=== PATIENT | female | born 1975 | race Caucasian/White ===

== ENCOUNTER 2019-01-20 12:09 | Inpatient (IN) | payer MEDICAID, MEDICARE ==
[~2019-01-20] VITALS: Ht 165.1 cm; Wt 43.7 kg
[2019-01-20] MEDS ORDERED: SODIUM CHLORIDE 0.9% 1,000ML IVBOLUS ONE ×2 (12:30→16:00)
[2019-01-20] MEDS ORDERED: ACETAMINOPHEN 650 MG SUPP ONE (12:46)
[2019-01-20 12:48] LABS: RAPID INFLUENZA A Negative (Negative); RAPID INFLUENZA B Negative (Negative)
[2019-01-20 12:57] LABS: MEAN CORPUSCULAR HEMOGLOBIN 27.5 pg (27.0-34.8); MEAN CORPUSCULAR HGB CONC 31.6 g/dL (32.4-35.8); MEAN PLATELET VOLUME 9.1 fL (7.4-10.4); PLATELET COUNT 448 x10^3/uL (130-400); RED BLOOD COUNT 4.05 x10^6/uL (3.82-5.3); RED CELL DISTRIBUTION WIDTH 16.2 % (9.6-15.2)
[2019-01-20] MEDS ORDERED: ACETAMINOPHEN 650 MG SUPP PR ONE (13:00)
[2019-01-20] MEDS ORDERED: PLEASE ENTER ALLERGIES MC SCH (13:00)
[2019-01-20 13:09] LABS: ALANINE AMINOTRANSFERASE 11 U/L (12-78); ALBUMIN 1.7 g/dL (3.4-5.0); CALCIUM 8.8 mg/dL (8.5-10.1); CREATININE 0.63 mg/dL (0.55-1.02)
[2019-01-20 13:13] LABS: ANION GAP 10 mmol/L (5-15)
[2019-01-20 13:14] LABS: CHLORIDE 115 mmol/L (98-107)
[2019-01-20 13:15] LABS: ALKALINE PHOSPHATASE 124 U/L (45-117); BILIRUBIN,TOTAL 0.5 mg/dL (0.2-1.0); TOTAL PROTEIN 6.8 g/dL (6.4-8.2)
--- NOTE | 2019-01-20 13:17 | NUR ---
late entry: 1220-pt bib remsa from [facility] for high fever and hi heart rate. pt was 88% on ra at [facility] and hr 140. pt placed in room. ekg done and presented to md. pt placed in room and placed on bp, cardiac and cont. pulse oximeter. assessment completed. pt with 2 stage 4 decubitis pressure ulcers on left coccyx and right hip area. strong odor with weeping serosainguinous fluid from left coccyx area. pt is unable to communicate and aphasic. pt with contractures bilateral legs and unable to ambulate and is bed bound. assessment completed.
[2019-01-20 13:18] LABS: MD YES
[2019-01-20 13:26] LABS: BAND#(MANUAL) 0.47 x10^3/uL; BANDS%(MANUAL) 2 % (0-7); LYMPH#(MANUAL) 1.88 x10^3/uL (1-3.4); LYMPHS% (MANUAL) 8 % (22-44); MONOS#(MANUAL) 1.41 x10^3/uL (0.3-2.7); MONOS% (MANUAL) 6 % (2-9); SEG#(MANUAL) 19.74 x10^3/uL (1.8-6.8); SEGS% (MANUAL) 84 % (42-75)
[2019-01-20 13:28] LABS: ANISOCYTOSIS 1+; POLYCHROMASIA 1+
[2019-01-20] MEDS ORDERED: VANCOMYCIN PER PHARMACY MC ONE (13:30)
[2019-01-20] MEDS ORDERED: VANCOMYCIN 800 MG in SODIUM CHLORIDE 0.9% 100 ML IV ONE (13:30)
[2019-01-20] MEDS ORDERED: PIPERACILLIN/TAZO/PMX 3.375GM 50 ML IVPB ONE (13:30)
[2019-01-20] MEDS ORDERED: POTASSIUM CHLORIDE 40 MEQ in SODIUM CHLORIDE 0.9% 500 ML IV ONE (13:30)
[2019-01-20 13:50] LABS: <PLATELET ESTIMATE> INCREASED
[2019-01-20] MEDS ORDERED: PIPERACILLIN/TAZO/PMX 3.375GM 50 ML ONE (13:54)
[2019-01-20 13:57] LABS: LARGE PLATELETS 1+
--- NOTE | 2019-01-20 14:00 | NUR ---
urine collected from [facility] and walked to lab. blood cultures drawn x 2 and antibiotics hung per md orders
[2019-01-20 14:10] LABS: CULTURE INDICATED? YES; MICROSCOPIC INDICATED
--- NOTE | 2019-01-20 14:40 | NUR ---
PT RESTING IN BED.
--- NOTE | 2019-01-20 15:43 | NUR ---
hospitalist at bedside.
[2019-01-20] MEDS ORDERED: ACET325T14 PO (15:44)
[2019-01-20] MEDS ORDERED: AMOX1TAB64 PO (15:45)
[2019-01-20] MEDS ORDERED: BISA10SU13 RC (15:46)
[2019-01-20] MEDS ORDERED: CIPR500T87 PO (15:47)
[2019-01-20] MEDS ORDERED: VALP250S PO/NG (15:48)
[2019-01-20] MEDS ORDERED: VALP250C PO (15:48)
[2019-01-20] MEDS ORDERED: LURA20TA PO (15:49)
[2019-01-20] MEDS ORDERED: POTA20TA14 PO (15:50)
[2019-01-20] MEDS ORDERED: QUET100T PO (15:51)
[2019-01-20] MEDS ORDERED: TRAZ-137 PO (15:52)
[2019-01-20] MEDS ORDERED: ONDANSETRON 2MG/ML, 2ML IVPush PRN (16:00)
[2019-01-20] MEDS ORDERED: VANCOMYCIN PER PHARMACY MC PRN (16:00)
[2019-01-20] MEDS ORDERED: hydrALAzine 20 MG/ML, 1ML IVPush PRN (16:00)
--- NOTE | 2019-01-20 16:21 | NUR ---
PT TO GO TO MRI FOR [facility] MRI.
[2019-01-20] MEDS ORDERED: NS + 20MEQ KCL 1,000 ML IV SCH (16:30)
[2019-01-20] MEDS ORDERED: PHARMACOKINETIC MONITORING MC PRN (18:00)
[2019-01-20] MEDS ORDERED: PHARMACOKINETIC CONSULTATION MC ONE (18:00)
[2019-01-20 18:02] LABS: ANION GAP 6 mmol/L (5-15); CHLORIDE 121 mmol/L (98-107); CREATININE 0.44 mg/dL (0.55-1.02)
[2019-01-20] MEDS ORDERED: D5%-0.45NACL+KCL 20MEQ 1,000 ML IV SCH (18:03)
[2019-01-20] MEDS ORDERED: POTASSIUM CHLORIDE 20 MEQ PACKET PO ONE (18:30)
[2019-01-20 18:46] VITALS: BP 88/50
[2019-01-20] MEDS ORDERED: CEFTRIAXONE PMX 1GM/50ML 50 ML IV SCH (19:00)
[2019-01-20] MEDS: QUETIAPINE 100MG TABLET PO SCH (20:52)
[2019-01-20] MEDS: LURASIDONE 20 MG TABLET PO SCH (20:52)
[2019-01-20] MEDS: VALPROATE SODIUM 250 MG/5 ML ORAL SOLN PO/NG SCH (20:52)
[2019-01-20] MEDS: ENOXAPARIN 40 MG/0.4 ML SQ SCH (20:53)
[2019-01-20 22:28] LABS: ANION GAP 7 mmol/L (5-15); CALCIUM 8.2 mg/dL (8.5-10.1); CHLORIDE 121 mmol/L (98-107); CREATININE 0.38 mg/dL (0.55-1.02)
[2019-01-20] MEDS: PIPERACILLIN/TAZO/PMX 3.375GM 50 ML IV SCH (22:31)
[2019-01-21 00:35] VITALS: BP 100/52
[2019-01-21] MEDS: POTASSIUM CHLORIDE 20 MEQ in DEXTROSE 5% 1,000 ML IV SCH ×2 (00:56→22:42)
[2019-01-21] MEDS ORDERED: VANCOMYCIN 800 MG in SODIUM CHLORIDE 0.9% 100 ML IV SCH (03:00)
[2019-01-21] MEDS ORDERED: SODIUM CHLORIDE 0.9%, 500ML IVBOLUS ONE (05:30)
[2019-01-21 06:05] LABS: ANION GAP 5 mmol/L (5-15); CALCIUM 8.2 mg/dL (8.5-10.1); CHLORIDE 123 mmol/L (98-107); CREATININE 0.23 mg/dL (0.55-1.02)
[2019-01-21] MEDS: PIPERACILLIN/TAZO/PMX 3.375GM 50 ML IV SCH ×3 (06:05→22:40)
[2019-01-21 06:06] LABS: MEAN CORPUSCULAR HEMOGLOBIN 27.7 pg (27.0-34.8); MEAN CORPUSCULAR HGB CONC 31.4 g/dL (32.4-35.8); MEAN CORPUSCULAR VOLUME 88.3 fL (80-100); MEAN PLATELET VOLUME 9.3 fL (7.4-10.4); PLATELET COUNT 345 x10^3/uL (130-400); RED BLOOD COUNT 2.93 x10^6/uL (3.82-5.3); RED CELL DISTRIBUTION WIDTH 16.1 % (9.6-15.2)
[2019-01-21 07:50] VITALS: BP 91/51
[2019-01-21 08:48] LABS: BASOPHILS # (AUTO) 0.07 x10^3/uL (0-0.1); BASOPHILS % (AUTO) 0 % (0-1); EOSINOPHILS # (AUTO) 0.03 x10^3/uL (0-0.4); EOSINOPHILS % (AUTO) 0 % (1-7); LYMPHOCYTES # (AUTO) 1.53 x10^3/uL (1-3.4); LYMPHOCYTES % (AUTO) 8 % (22-44); MD NO; MONOCYTES # (AUTO) 1.02 x10^3/uL (0.2-0.8); MONOCYTES % (AUTO) 5 % (2-9); NEUTROPHILS # (AUTO) 16.97 x10^3/uL (1.8-6.8); NEUTROPHILS % (AUTO) 87 % (42-75)
[2019-01-21] MEDS ORDERED: POTASSIUM CHLORIDE 20 MEQ TAB.ER.PRT PO SCH (09:00)
[2019-01-21] MEDS ORDERED: POTASSIUM CHLORIDE 40 MEQ in SODIUM CHLORIDE 0.9% 500 ML IV ONE (10:00)
[2019-01-21] MEDS: BISACODYL 10 MG SUPP HOMEMEDPR SCH (10:02)
[2019-01-21] MEDS: VALPROATE SODIUM 250 MG/5 ML ORAL SOLN PO/NG SCH (10:02)
[2019-01-21 13:30] VITALS: BP 92/55
[2019-01-21] MEDS: DAPTOMYCIN 240 MG in SODIUM CHLORIDE 0.9% 100 ML IVPB SCH (13:56)
--- NOTE | 2019-01-21 14:25 | NUR ---
REC NPO; swallow precautions sheet posted at bedside Addendum: 01/21/19 at [address] Amended: Links added.
[2019-01-21 16:44] LABS: ANION GAP 6 mmol/L (5-15); CHLORIDE 121 mmol/L (98-107); CREATININE 0.27 mg/dL (0.55-1.02)
[2019-01-21 19:57] VITALS: BP 111/69
[2019-01-21 22:22] LABS: ANION GAP 4 mmol/L (5-15); CHLORIDE 120 mmol/L (98-107); CREATININE 0.23 mg/dL (0.55-1.02)
[2019-01-21] MEDS: ENOXAPARIN 40 MG/0.4 ML SQ SCH (22:41)
[2019-01-22] MEDS: VALPROATE SODIUM 250 MG/5 ML ORAL SOLN PO/NG SCH ×3 (00:58→21:34)
[2019-01-22] MEDS: QUETIAPINE 100MG TABLET PO SCH ×2 (00:59→21:35)
[2019-01-22] MEDS: LURASIDONE 20 MG TABLET PO SCH ×2 (00:59→21:35)
[2019-01-22 01:39] VITALS: BP 91/61
[2019-01-22] MEDS: PIPERACILLIN/TAZO/PMX 3.375GM 50 ML IV SCH ×2 (05:57→22:55)
[2019-01-22 06:43] LABS: MEAN CORPUSCULAR HEMOGLOBIN 27.3 pg (27.0-34.8); MEAN CORPUSCULAR HGB CONC 31.1 g/dL (32.4-35.8); MEAN CORPUSCULAR VOLUME 87.5 fL (80-100); MEAN PLATELET VOLUME 9.3 fL (7.4-10.4); PLATELET COUNT 331 x10^3/uL (130-400); RED BLOOD COUNT 2.82 x10^6/uL (3.82-5.3); RED CELL DISTRIBUTION WIDTH 16.1 % (9.6-15.2)
[2019-01-22 06:57] LABS: ANION GAP 5 mmol/L (5-15); CALCIUM 7.9 mg/dL (8.5-10.1); CHLORIDE 115 mmol/L (98-107); CREATININE 0.22 mg/dL (0.55-1.02)
[2019-01-22 07:14] LABS: CHLORIDE 114 mmol/L (98-107)
[2019-01-22 07:18] LABS: ANION GAP 5 mmol/L (5-15); CALCIUM 8.1 mg/dL (8.5-10.1); CREATININE 0.23 mg/dL (0.55-1.02)
[2019-01-22 07:50] LABS: BASOPHILS # (AUTO) 0.05 x10^3/uL (0-0.1); BASOPHILS % (AUTO) 0 % (0-1); EOSINOPHILS # (AUTO) 0.13 x10^3/uL (0-0.4); EOSINOPHILS % (AUTO) 1 % (1-7); LYMPHOCYTES # (AUTO) 1.73 x10^3/uL (1-3.4); LYMPHOCYTES % (AUTO) 12 % (22-44); MD SCAN; MONOCYTES # (AUTO) 0.68 x10^3/uL (0.2-0.8); MONOCYTES % (AUTO) 5 % (2-9); NEUTROPHILS # (AUTO) 12.05 x10^3/uL (1.8-6.8); NEUTROPHILS % (AUTO) 82 % (42-75)
[2019-01-22 08:29] VITALS: BP 93/58
[2019-01-22] MEDS ORDERED: POTASSIUM CHLORIDE 20 MEQ TAB.ER.PRT NG SCH (09:00)
[2019-01-22] MEDS: BISACODYL 10 MG SUPP HOMEMEDPR SCH (11:47)
[2019-01-22] MEDS: POTASSIUM CHLORIDE 20 MEQ in DEXTROSE 5% 1,000 ML IV SCH ×2 (12:15→20:00)
[2019-01-22 12:44] LABS: ANION GAP 7 mmol/L (5-15); CHLORIDE 111 mmol/L (98-107); CREATININE 0.21 mg/dL (0.55-1.02)
[2019-01-22 12:50] VITALS: BP 100/65
[2019-01-22] MEDS: POTASSIUM CHLORIDE 20 MEQ PACKET NG SCH (14:18)
[2019-01-22] MEDS ORDERED: POTASSIUM CHLORIDE 40 MEQ in SODIUM CHLORIDE 0.9% 500 ML IV ONE (17:00)
[2019-01-22 19:39] VITALS: BP 97/58
[2019-01-22] MEDS: DAPTOMYCIN 240 MG in SODIUM CHLORIDE 0.9% 100 ML IVPB SCH (21:34)
[2019-01-22] MEDS: ENOXAPARIN 40 MG/0.4 ML SQ SCH (21:41)
[2019-01-23 01:04] VITALS: BP 106/71
[2019-01-23 06:14] LABS: BASOPHILS # (AUTO) 0.04 x10^3/uL (0-0.1); BASOPHILS % (AUTO) 0 % (0-1); EOSINOPHILS # (AUTO) 0.24 x10^3/uL (0-0.4); EOSINOPHILS % (AUTO) 2 % (1-7); LYMPHOCYTES # (AUTO) 1.36 x10^3/uL (1-3.4); LYMPHOCYTES % (AUTO) 11 % (22-44); MD NO; MEAN CORPUSCULAR HEMOGLOBIN 27.9 pg (27.0-34.8); MEAN CORPUSCULAR HGB CONC 32.3 g/dL (32.4-35.8); MEAN CORPUSCULAR VOLUME 86.5 fL (80-100); MEAN PLATELET VOLUME 9.5 fL (7.4-10.4); MONOCYTES # (AUTO) 0.78 x10^3/uL (0.2-0.8); MONOCYTES % (AUTO) 6 % (2-9); NEUTROPHILS # (AUTO) 9.73 x10^3/uL (1.8-6.8); NEUTROPHILS % (AUTO) 80 % (42-75); PLATELET COUNT 335 x10^3/uL (130-400); RED BLOOD COUNT 3.04 x10^6/uL (3.82-5.3); RED CELL DISTRIBUTION WIDTH 15.5 % (9.6-15.2)
[2019-01-23] MEDS: PIPERACILLIN/TAZO/PMX 3.375GM 50 ML IV SCH ×3 (06:16→22:08)
[2019-01-23 06:19] LABS: CHLORIDE 113 mmol/L (98-107)
[2019-01-23 06:20] LABS: ANION GAP 7 mmol/L (5-15); CREATININE 0.25 mg/dL (0.55-1.02)
[2019-01-23 09:37] VITALS: BP 112/82
[2019-01-23] MEDS: VALPROATE SODIUM 250 MG/5 ML ORAL SOLN PO/NG SCH ×2 (10:03→22:08)
[2019-01-23] MEDS: POTASSIUM CHLORIDE 20 MEQ PACKET NG SCH (10:03)
[2019-01-23] MEDS: BISACODYL 10 MG SUPP HOMEMEDPR SCH (10:03)
[2019-01-23] MEDS ORDERED: MAGNESIUM SULFATE PMX 2GM/50ML 50 ML IV ONE (10:30)
[2019-01-23] MEDS ORDERED: PHARMACOKINETIC CONSULTATION MC ONE (10:30)
[2019-01-23] MEDS ORDERED: VANCOMYCIN PER PHARMACY MC PRN (10:30)
[2019-01-23] MEDS ORDERED: PHARMACOKINETIC MONITORING MC PRN (10:30)
[2019-01-23] MEDS ORDERED: VANCOMYCIN 800 MG in SODIUM CHLORIDE 0.9% 100 ML IV SCH (11:00)
[2019-01-23 12:48] VITALS: BP 110/70
[2019-01-23] MEDS: POTASSIUM CHLORIDE 20 MEQ in DEXTROSE 5% 1,000 ML IV SCH ×2 (12:51→22:08)
[2019-01-23 15:44] LABS: ANION GAP 7 mmol/L (5-15); CALCIUM 8.4 mg/dL (8.5-10.1); CHLORIDE 109 mmol/L (98-107); CREATININE 0.37 mg/dL (0.55-1.02)
[2019-01-23] MEDS: LINEZOLID PMX 600MG/300ML 300 ML IV SCH (17:34)
[2019-01-23 20:14] VITALS: BP 92/61
[2019-01-23] MEDS: LURASIDONE 20 MG TABLET PO SCH (22:08)
[2019-01-23] MEDS: ENOXAPARIN 40 MG/0.4 ML SQ SCH (22:08)
[2019-01-23] MEDS: QUETIAPINE 100MG TABLET PO SCH (22:08)
[2019-01-24] MEDS ORDERED: POTASSIUM CHLORIDE 20 MEQ in DEXTROSE 5% 1,000 ML IV SCH (01:00)
[2019-01-24 02:12] VITALS: BP 109/74
[2019-01-24] MEDS: PIPERACILLIN/TAZO/PMX 3.375GM 50 ML IV SCH ×3 (05:14→22:33)
[2019-01-24] MEDS: POTASSIUM CHLORIDE 20 MEQ in DEXTROSE 5% 1,000 ML IV SCH (06:02)
[2019-01-24] MEDS: LINEZOLID PMX 600MG/300ML 300 ML IV SCH ×2 (06:02→18:19)
[2019-01-24] MEDS: POTASSIUM CHLORIDE 20 MEQ PACKET NG SCH (08:10)
[2019-01-24] MEDS: BISACODYL 10 MG SUPP HOMEMEDPR SCH (08:10)
[2019-01-24] MEDS: VALPROATE SODIUM 250 MG/5 ML ORAL SOLN PO/NG SCH ×2 (08:11→22:33)
[2019-01-24 08:45] VITALS: BP 113/77
[2019-01-24 10:38] LABS: MEAN CORPUSCULAR HEMOGLOBIN 26.7 pg (27.0-34.8); MEAN CORPUSCULAR HGB CONC 30.5 g/dL (32.4-35.8); MEAN CORPUSCULAR VOLUME 87.5 fL (80-100); MEAN PLATELET VOLUME 9.6 fL (7.4-10.4); PLATELET COUNT 392 x10^3/uL (130-400); RED CELL DISTRIBUTION WIDTH 16.3 % (9.6-15.2)
[2019-01-24 10:48] LABS: ANION GAP 3 mmol/L (5-15); CALCIUM 8.7 mg/dL (8.5-10.1); CHLORIDE 110 mmol/L (98-107)
[2019-01-24 10:55] LABS: BASOPHILS % (AUTO) 0 % (0-1); EOSINOPHILS # (AUTO) 0.09 x10^3/uL (0-0.4); EOSINOPHILS % (AUTO) 1 % (1-7); LYMPHOCYTES % (AUTO) 9 % (22-44); MD SCAN; MONOCYTES % (AUTO) 1 % (2-9); NEUTROPHILS # (AUTO) 9.66 x10^3/uL (1.8-6.8); NEUTROPHILS % (AUTO) 89 % (42-75)
[2019-01-24 13:26] VITALS: BP 99/63
[2019-01-24 19:52] VITALS: BP 103/66
[2019-01-24] MEDS: LURASIDONE 20 MG TABLET PO SCH (22:33)
[2019-01-24] MEDS: ENOXAPARIN 40 MG/0.4 ML SQ SCH (22:33)
[2019-01-24] MEDS: QUETIAPINE 100MG TABLET PO SCH (22:33)
[2019-01-25 01:22] VITALS: BP 97/62
[2019-01-25] MEDS: PIPERACILLIN/TAZO/PMX 3.375GM 50 ML IV SCH ×3 (05:39→22:18)
[2019-01-25] MEDS: LINEZOLID PMX 600MG/300ML 300 ML IV SCH ×2 (06:26→18:00)
[2019-01-25 08:25] VITALS: BP 156/62
--- NOTE | 2019-01-25 12:01 | NUR ---
NPO single ice chips ok with 1:1 supervision when alert and seated at 90 Addendum: 01/25/19 at [address] Amended: Links added.
[2019-01-25] MEDS: VALPROATE SODIUM 250 MG/5 ML ORAL SOLN PO/NG SCH ×2 (12:07→22:18)
[2019-01-25] MEDS: BISACODYL 10 MG SUPP HOMEMEDPR SCH (12:07)
[2019-01-25 14:25] VITALS: BP 97/66
[2019-01-25 15:05] LABS: ANION GAP 5 mmol/L (5-15); CALCIUM 8.1 mg/dL (8.5-10.1); CHLORIDE 107 mmol/L (98-107); CREATININE 0.27 mg/dL (0.55-1.02)
[2019-01-25] MEDS ORDERED: POTASSIUM CHLORIDE 20 MEQ PACKET PO ONE (16:00)
[2019-01-25 19:36] VITALS: BP 102/69
[2019-01-25] MEDS: QUETIAPINE 100MG TABLET PO SCH (22:18)
[2019-01-25] MEDS: ENOXAPARIN 40 MG/0.4 ML SQ SCH (22:18)
[2019-01-25] MEDS: LURASIDONE 20 MG TABLET PO SCH (22:19)
[2019-01-26 00:58] VITALS: BP 97/64
[2019-01-26 04:52] LABS: BASOPHILS # (AUTO) 0.03 x10^3/uL (0-0.1); BASOPHILS % (AUTO) 0 % (0-1); EOSINOPHILS # (AUTO) 0.11 x10^3/uL (0-0.4); EOSINOPHILS % (AUTO) 1 % (1-7); LYMPHOCYTES # (AUTO) 1.99 x10^3/uL (1-3.4); LYMPHOCYTES % (AUTO) 21 % (22-44); MD NO; MEAN CORPUSCULAR HEMOGLOBIN 27.8 pg (27.0-34.8); MEAN CORPUSCULAR VOLUME 86.8 fL (80-100); MONOCYTES # (AUTO) 0.63 x10^3/uL (0.2-0.8); MONOCYTES % (AUTO) 7 % (2-9); NEUTROPHILS % (AUTO) 70 % (42-75); PLATELET COUNT 382 x10^3/uL (130-400); RED BLOOD COUNT 3.21 x10^6/uL (3.82-5.3); RED CELL DISTRIBUTION WIDTH 16.5 % (9.6-15.2)
[2019-01-26 05:03] LABS: ANION GAP 6 mmol/L (5-15); CALCIUM 8.2 mg/dL (8.5-10.1); CHLORIDE 110 mmol/L (98-107)
[2019-01-26] MEDS: PIPERACILLIN/TAZO/PMX 3.375GM 50 ML IV SCH ×3 (05:42→21:48)
[2019-01-26] MEDS: LINEZOLID PMX 600MG/300ML 300 ML IV SCH ×2 (05:42→18:16)
[2019-01-26 08:19] VITALS: BP 103/66
[2019-01-26] MEDS: POTASSIUM CHLORIDE 20 MEQ PACKET NG SCH ×2 (12:57→21:49)
[2019-01-26] MEDS: BISACODYL 10 MG SUPP HOMEMEDPR SCH (12:58)
[2019-01-26] MEDS: VALPROATE SODIUM 250 MG/5 ML ORAL SOLN PO/NG SCH ×2 (12:58→21:49)
[2019-01-26 14:30] VITALS: BP 95/56
[2019-01-26 19:42] VITALS: BP 104/66
[2019-01-26] MEDS: QUETIAPINE 100MG TABLET PO SCH (21:49)
[2019-01-26] MEDS: LURASIDONE 20 MG TABLET PO SCH (21:49)
[2019-01-26] MEDS: ENOXAPARIN 40 MG/0.4 ML SQ SCH (21:50)
[2019-01-27 01:26] VITALS: BP 95/59
[2019-01-27] MEDS: PIPERACILLIN/TAZO/PMX 3.375GM 50 ML IV SCH ×3 (05:46→21:51)
[2019-01-27 06:21] VITALS: BP 92/61
[2019-01-27] MEDS: LINEZOLID PMX 600MG/300ML 300 ML IV SCH ×2 (06:27→18:23)
[2019-01-27 09:09] LABS: ANION GAP 6 mmol/L (5-15); CALCIUM 8.7 mg/dL (8.5-10.1); CHLORIDE 108 mmol/L (98-107); CREATININE 0.31 mg/dL (0.55-1.02)
[2019-01-27] MEDS: BISACODYL 10 MG SUPP HOMEMEDPR SCH (10:12)
[2019-01-27] MEDS: VALPROATE SODIUM 250 MG/5 ML ORAL SOLN PO/NG SCH ×2 (10:12→21:52)
[2019-01-27] MEDS: KETOROLAC 30 MG/1 ML IVPush PRN (13:27)
[2019-01-27 13:56] VITALS: BP 115/78
[2019-01-27 19:54] VITALS: BP 98/66
[2019-01-27] MEDS: LURASIDONE 20 MG TABLET PO SCH (21:52)
[2019-01-27] MEDS: ENOXAPARIN 40 MG/0.4 ML SQ SCH (21:52)
[2019-01-27] MEDS: QUETIAPINE 100MG TABLET PO SCH (21:52)
[2019-01-28 01:22] VITALS: BP 102/64
[2019-01-28] MEDS: KETOROLAC 30 MG/1 ML IVPush PRN ×3 (04:58→17:38)
[2019-01-28] MEDS: PIPERACILLIN/TAZO/PMX 3.375GM 50 ML IV SCH ×3 (05:43→21:41)
[2019-01-28] MEDS: LINEZOLID PMX 600MG/300ML 300 ML IV SCH ×2 (06:18→17:26)
[2019-01-28 07:27] VITALS: BP 100/63
[2019-01-28] MEDS: BISACODYL 10 MG SUPP HOMEMEDPR SCH (09:48)
[2019-01-28] MEDS: VALPROATE SODIUM 250 MG/5 ML ORAL SOLN PO/NG SCH ×2 (09:48→21:40)
[2019-01-28 15:52] VITALS: BP 101/66
[2019-01-28 19:13] VITALS: BP 100/63
[2019-01-28] MEDS: QUETIAPINE 100MG TABLET PO SCH (21:40)
[2019-01-28] MEDS: LURASIDONE 20 MG TABLET PO SCH (21:40)
[2019-01-28] MEDS: ENOXAPARIN 40 MG/0.4 ML SQ SCH (21:41)
[2019-01-29 00:26] VITALS: BP 99/71
[2019-01-29] MEDS: PIPERACILLIN/TAZO/PMX 3.375GM 50 ML IV SCH ×3 (05:42→22:01)
[2019-01-29] MEDS ORDERED: OXYcodone/APAP 5/325MG TABLET PO ONE (06:00)
[2019-01-29] MEDS: LINEZOLID PMX 600MG/300ML 300 ML IV SCH ×2 (06:07→17:10)
[2019-01-29 07:19] VITALS: BP 127/68
[2019-01-29 09:21] LABS: BASOPHILS # (AUTO) 0.04 x10^3/uL (0-0.1); BASOPHILS % (AUTO) 1 % (0-1); EOSINOPHILS # (AUTO) 0.19 x10^3/uL (0-0.4); EOSINOPHILS % (AUTO) 2 % (1-7); LYMPHOCYTES # (AUTO) 1.62 x10^3/uL (1-3.4); LYMPHOCYTES % (AUTO) 20 % (22-44); MD NO; MEAN CORPUSCULAR HGB CONC 31.1 g/dL (32.4-35.8); MEAN CORPUSCULAR VOLUME 86.8 fL (80-100); MEAN PLATELET VOLUME 9.3 fL (7.4-10.4); MONOCYTES # (AUTO) 0.69 x10^3/uL (0.2-0.8); MONOCYTES % (AUTO) 8 % (2-9); NEUTROPHILS # (AUTO) 5.74 x10^3/uL (1.8-6.8); NEUTROPHILS % (AUTO) 69 % (42-75); PLATELET COUNT 378 x10^3/uL (130-400); RED BLOOD COUNT 3.15 x10^6/uL (3.82-5.3); RED CELL DISTRIBUTION WIDTH 17.1 % (9.6-15.2)
[2019-01-29 09:28] LABS: ANION GAP 4 mmol/L (5-15); CALCIUM 8.5 mg/dL (8.5-10.1); CHLORIDE 109 mmol/L (98-107); CREATININE 0.34 mg/dL (0.55-1.02)
[2019-01-29] MEDS: VALPROATE SODIUM 250 MG/5 ML ORAL SOLN PO/NG SCH ×2 (09:28→22:01)
[2019-01-29] MEDS: BISACODYL 10 MG SUPP HOMEMEDPR SCH (09:28)
[2019-01-29] MEDS: OXYcodone 5 MG/5 ML ORAL.SOL UDC PO/NG PRN ×2 (10:39→17:05)
[2019-01-29 14:00] VITALS: BP 130/70
[2019-01-29 20:31] VITALS: BP 112/72
[2019-01-29] MEDS: TRAZODONE 100MG TABLET PO SCH (22:01)
[2019-01-29] MEDS: LURASIDONE 20 MG TABLET PO SCH (22:01)
[2019-01-29] MEDS: ENOXAPARIN 40 MG/0.4 ML SQ SCH (22:01)
[2019-01-29] MEDS: QUETIAPINE 100MG TABLET PO SCH (22:01)
[2019-01-30 03:24] VITALS: BP 98/47
[2019-01-30] MEDS: LINEZOLID PMX 600MG/300ML 300 ML IV SCH ×2 (04:59→17:52)
[2019-01-30 07:42] VITALS: BP 94/68
[2019-01-30] MEDS: PIPERACILLIN/TAZO/PMX 3.375GM 50 ML IV SCH ×3 (07:49→22:07)
[2019-01-30] MEDS: BISACODYL 10 MG SUPP HOMEMEDPR SCH (09:00)
[2019-01-30] MEDS: VALPROATE SODIUM 250 MG/5 ML ORAL SOLN PO/NG SCH ×2 (09:00→22:08)
[2019-01-30 14:00] VITALS: BP 121/85
[2019-01-30] MEDS: OXYcodone 5 MG/5 ML ORAL.SOL UDC PO/NG PRN (17:52)
[2019-01-30 21:50] VITALS: BP 145/85
[2019-01-30] MEDS: ENOXAPARIN 40 MG/0.4 ML SQ SCH (22:07)
[2019-01-30] MEDS: TRAZODONE 100MG TABLET PO SCH (22:08)
[2019-01-30] MEDS: LURASIDONE 20 MG TABLET PO SCH (22:08)
[2019-01-30] MEDS: QUETIAPINE 100MG TABLET PO SCH (22:08)
[2019-01-31 03:50] VITALS: BP 101/69
[2019-01-31 04:06] VITALS: BP 101/69
[2019-01-31] MEDS: PIPERACILLIN/TAZO/PMX 3.375GM 50 ML IV SCH ×3 (05:41→22:26)
[2019-01-31] MEDS: LINEZOLID PMX 600MG/300ML 300 ML IV SCH ×2 (06:13→17:49)
[2019-01-31 07:24] VITALS: BP 108/66
[2019-01-31] MEDS: BISACODYL 10 MG SUPP HOMEMEDPR SCH (09:00)
[2019-01-31] MEDS: VALPROATE SODIUM 250 MG/5 ML ORAL SOLN PO/NG SCH ×2 (11:00→21:08)
[2019-01-31 14:00] VITALS: BP 112/71
[2019-01-31 18:44] VITALS: BP 106/69
[2019-01-31] MEDS: ENOXAPARIN 40 MG/0.4 ML SQ SCH (21:08)
[2019-01-31] MEDS: LURASIDONE 20 MG TABLET PO SCH (21:08)
[2019-01-31] MEDS: TRAZODONE 100MG TABLET PO SCH (21:09)
[2019-01-31] MEDS: QUETIAPINE 100MG TABLET PO SCH (21:09)
[2019-02-01 01:16] VITALS: BP 91/54
[2019-02-01 05:43] LABS: ANION GAP 5 mmol/L (5-15); CALCIUM 8.7 mg/dL (8.5-10.1); CHLORIDE 107 mmol/L (98-107); CREATININE 0.29 mg/dL (0.55-1.02)
[2019-02-01 05:55] LABS: BASOPHILS # (AUTO) 0.06 x10^3/uL (0-0.1); BASOPHILS % (AUTO) 1 % (0-1); EOSINOPHILS # (AUTO) 0.08 x10^3/uL (0-0.4); EOSINOPHILS % (AUTO) 1 % (1-7); LYMPHOCYTES # (AUTO) 1.73 x10^3/uL (1-3.4); LYMPHOCYTES % (AUTO) 17 % (22-44); MD NO; MEAN CORPUSCULAR HEMOGLOBIN 28.1 pg (27.0-34.8); MEAN CORPUSCULAR VOLUME 87.7 fL (80-100); MONOCYTES % (AUTO) 8 % (2-9); NEUTROPHILS # (AUTO) 7.79 x10^3/uL (1.8-6.8); NEUTROPHILS % (AUTO) 75 % (42-75); PLATELET COUNT 328 x10^3/uL (130-400); RED BLOOD COUNT 3.25 x10^6/uL (3.82-5.3)
[2019-02-01] MEDS: PIPERACILLIN/TAZO/PMX 3.375GM 50 ML IV SCH ×3 (05:58→21:52)
[2019-02-01] MEDS: LINEZOLID PMX 600MG/300ML 300 ML IV SCH ×2 (06:29→18:30)
[2019-02-01 07:12] VITALS: BP 97/61
[2019-02-01] MEDS: VALPROATE SODIUM 250 MG/5 ML ORAL SOLN PO/NG SCH ×2 (08:51→21:52)
[2019-02-01] MEDS: OXYcodone 5 MG/5 ML ORAL.SOL UDC PO/NG PRN (08:51)
[2019-02-01] MEDS: BISACODYL 10 MG SUPP HOMEMEDPR SCH (08:55)
[2019-02-01 14:18] VITALS: BP 99/65
[2019-02-01 19:36] VITALS: BP 109/73
[2019-02-01] MEDS: QUETIAPINE 100MG TABLET PO SCH (21:52)
[2019-02-01] MEDS: ENOXAPARIN 40 MG/0.4 ML SQ SCH (21:52)
[2019-02-01] MEDS: LURASIDONE 20 MG TABLET PO SCH (21:52)
[2019-02-01] MEDS: TRAZODONE 100MG TABLET PO SCH (21:52)
[2019-02-02 00:58] VITALS: BP 106/66
[2019-02-02] MEDS: PIPERACILLIN/TAZO/PMX 3.375GM 50 ML IV SCH ×3 (05:49→21:35)
[2019-02-02] MEDS: LINEZOLID PMX 600MG/300ML 300 ML IV SCH ×2 (06:26→18:04)
[2019-02-02 07:52] VITALS: BP 99/65
[2019-02-02] MEDS: BISACODYL 10 MG SUPP HOMEMEDPR SCH (10:31)
[2019-02-02] MEDS: VALPROATE SODIUM 250 MG/5 ML ORAL SOLN PO/NG SCH ×2 (10:48→22:30)
[2019-02-02 12:50] VITALS: BP 102/65
[2019-02-02 19:34] VITALS: BP 102/64
[2019-02-02] MEDS: ENOXAPARIN 40 MG/0.4 ML SQ SCH (21:25)
[2019-02-02] MEDS: TRAZODONE 100MG TABLET PO SCH (21:26)
[2019-02-02] MEDS: LURASIDONE 20 MG TABLET PO SCH (21:26)
[2019-02-02] MEDS: QUETIAPINE 100MG TABLET PO SCH (21:26)
[2019-02-03 01:01] VITALS: BP 104/66
[2019-02-03] MEDS: PIPERACILLIN/TAZO/PMX 3.375GM 50 ML IV SCH ×3 (05:38→21:45)
[2019-02-03] MEDS: LINEZOLID PMX 600MG/300ML 300 ML IV SCH ×2 (06:13→17:49)
[2019-02-03 08:24] VITALS: BP 103/56
[2019-02-03] MEDS: VALPROATE SODIUM 250 MG/5 ML ORAL SOLN PO/NG SCH ×2 (09:00→21:45)
[2019-02-03] MEDS: BISACODYL 10 MG SUPP HOMEMEDPR SCH (09:00)
[2019-02-03] MEDS: OXYcodone 5 MG/5 ML ORAL.SOL UDC PO/NG PRN (09:40)
[2019-02-03 14:19] VITALS: BP 90/57
[2019-02-03 19:54] VITALS: BP 99/69
[2019-02-03] MEDS: TRAZODONE 100MG TABLET PO SCH (21:45)
[2019-02-03] MEDS: LURASIDONE 20 MG TABLET PO SCH (21:45)
[2019-02-03] MEDS: ENOXAPARIN 40 MG/0.4 ML SQ SCH (21:45)
[2019-02-03] MEDS: QUETIAPINE 100MG TABLET PO SCH (21:45)
[2019-02-04 01:15] VITALS: BP 91/56
[2019-02-04 04:57] LABS: MEAN CORPUSCULAR HEMOGLOBIN 28.1 pg (27.0-34.8); MEAN CORPUSCULAR HGB CONC 31.7 g/dL (32.4-35.8); MEAN CORPUSCULAR VOLUME 88.6 fL (80-100); MEAN PLATELET VOLUME 8.6 fL (7.4-10.4); PLATELET COUNT 266 x10^3/uL (130-400); RED BLOOD COUNT 3.21 x10^6/uL (3.82-5.3)
[2019-02-04 05:08] LABS: ALBUMIN 1.8 g/dL (3.4-5.0); ANION GAP 6 mmol/L (5-15); CALCIUM 8.8 mg/dL (8.5-10.1); CHLORIDE 107 mmol/L (98-107); CREATININE 0.36 mg/dL (0.55-1.02)
[2019-02-04 05:42] LABS: RED CELL DISTRIBUTION WIDTH 18.6 % (9.6-15.2)
[2019-02-04 05:44] LABS: BASOPHILS # (AUTO) 0.04 x10^3/uL (0-0.1); BASOPHILS % (AUTO) 1 % (0-1); EOSINOPHILS # (AUTO) 0.11 x10^3/uL (0-0.4); EOSINOPHILS % (AUTO) 2 % (1-7); LYMPHOCYTES # (AUTO) 1.89 x10^3/uL (1-3.4); LYMPHOCYTES % (AUTO) 27 % (22-44); MD SCAN; MONOCYTES # (AUTO) 0.54 x10^3/uL (0.2-0.8); MONOCYTES % (AUTO) 8 % (2-9); NEUTROPHILS # (AUTO) 4.38 x10^3/uL (1.8-6.8); NEUTROPHILS % (AUTO) 63 % (42-75)
[2019-02-04] MEDS: PIPERACILLIN/TAZO/PMX 3.375GM 50 ML IV SCH ×3 (05:50→21:50)
[2019-02-04] MEDS: LINEZOLID PMX 600MG/300ML 300 ML IV SCH ×2 (06:25→17:52)
[2019-02-04 07:44] VITALS: BP 104/64
[2019-02-04] MEDS: BISACODYL 10 MG SUPP HOMEMEDPR SCH (10:41)
[2019-02-04] MEDS: VALPROATE SODIUM 250 MG/5 ML ORAL SOLN PO/NG SCH ×2 (11:12→20:31)
[2019-02-04 15:23] VITALS: BP 106/71
[2019-02-04 18:56] VITALS: BP 106/71
[2019-02-04] MEDS: ENOXAPARIN 40 MG/0.4 ML SQ SCH (20:31)
[2019-02-04] MEDS: LURASIDONE 20 MG TABLET PO SCH (20:31)
[2019-02-04] MEDS: TRAZODONE 100MG TABLET PO SCH (20:32)
[2019-02-04] MEDS: QUETIAPINE 100MG TABLET PO SCH (20:32)
[2019-02-05 00:38] VITALS: BP 100/65
[2019-02-05] MEDS: PIPERACILLIN/TAZO/PMX 3.375GM 50 ML IV SCH ×3 (05:16→22:23)
[2019-02-05] MEDS: LINEZOLID PMX 600MG/300ML 300 ML IV SCH ×2 (06:03→18:50)
[2019-02-05 07:40] VITALS: BP 104/68
[2019-02-05] MEDS: OXYcodone 5 MG/5 ML ORAL.SOL UDC PO/NG PRN (10:00)
[2019-02-05] MEDS: BISACODYL 10 MG SUPP HOMEMEDPR SCH (11:45)
[2019-02-05] MEDS: VALPROATE SODIUM 250 MG/5 ML ORAL SOLN PO/NG SCH ×2 (11:46→21:08)
[2019-02-05 12:45] VITALS: BP 102/61
[2019-02-05 19:52] VITALS: BP 103/62
[2019-02-05] MEDS: ENOXAPARIN 40 MG/0.4 ML SQ SCH (20:38)
[2019-02-05] MEDS: TRAZODONE 100MG TABLET PO SCH (20:38)
[2019-02-05] MEDS: QUETIAPINE 100MG TABLET PO SCH (20:39)
[2019-02-05] MEDS: LURASIDONE 20 MG TABLET PO SCH (20:39)
[2019-02-06 00:36] VITALS: BP 98/57
[2019-02-06] MEDS: PIPERACILLIN/TAZO/PMX 3.375GM 50 ML IV SCH ×2 (05:43→18:39)
[2019-02-06] MEDS: LINEZOLID PMX 600MG/300ML 300 ML IV SCH ×2 (06:24→19:16)
[2019-02-06 09:00] VITALS: BP 105/68
[2019-02-06] MEDS: VALPROATE SODIUM 250 MG/5 ML ORAL SOLN PO/NG SCH ×2 (10:51→19:15)
[2019-02-06] MEDS: BISACODYL 10 MG SUPP HOMEMEDPR SCH (10:51)
[2019-02-06 14:09] VITALS: BP 101/72
[2019-02-06 19:03] VITALS: BP 100/68
[2019-02-06] MEDS: TRAZODONE 100MG TABLET PO SCH (19:15)
[2019-02-06] MEDS: LURASIDONE 20 MG TABLET PO SCH (19:16)
[2019-02-06] MEDS: QUETIAPINE 100MG TABLET PO SCH (19:16)
[2019-02-06] MEDS: ENOXAPARIN 40 MG/0.4 ML SQ SCH (19:16)
[2019-02-07 00:42] VITALS: BP 106/73
[2019-02-07] MEDS: PIPERACILLIN/TAZO/PMX 3.375GM 50 ML IV SCH ×3 (02:35→19:49)
[2019-02-07 07:46] VITALS: BP 112/73
[2019-02-07] MEDS: OXYcodone 5 MG/5 ML ORAL.SOL UDC PO/NG PRN ×2 (07:47→16:10)
[2019-02-07] MEDS: VALPROATE SODIUM 250 MG/5 ML ORAL SOLN PO/NG SCH ×2 (07:48→22:29)
[2019-02-07] MEDS: LINEZOLID PMX 600MG/300ML 300 ML IV SCH ×2 (07:48→20:46)
[2019-02-07] MEDS: BISACODYL 10 MG SUPP HOMEMEDPR SCH (07:48)
[2019-02-07 15:33] VITALS: BP 104/63
[2019-02-07 19:45] VITALS: BP 118/79
[2019-02-07] MEDS: TRAZODONE 100MG TABLET PO SCH (22:28)
[2019-02-07] MEDS: ENOXAPARIN 40 MG/0.4 ML SQ SCH (22:29)
[2019-02-07] MEDS: QUETIAPINE 100MG TABLET PO SCH (22:29)
[2019-02-07] MEDS: LURASIDONE 20 MG TABLET PO SCH (22:29)
[2019-02-08 01:27] VITALS: BP 95/55
[2019-02-08 04:11] LABS: HCT (SEDRATE) 28.7 % (34.6-47.8); MEAN CORPUSCULAR HEMOGLOBIN 28.9 pg (27.0-34.8); MEAN CORPUSCULAR HGB CONC 32.3 g/dL (32.4-35.8); MEAN CORPUSCULAR VOLUME 89.3 fL (80-100); MEAN PLATELET VOLUME 8.4 fL (7.4-10.4); PLATELET COUNT 246 x10^3/uL (130-400); RED BLOOD COUNT 3.21 x10^6/uL (3.82-5.3); RED CELL DISTRIBUTION WIDTH 22.3 % (9.6-15.2)
[2019-02-08] MEDS: PIPERACILLIN/TAZO/PMX 3.375GM 50 ML IV SCH ×3 (04:15→20:30)
[2019-02-08 04:22] LABS: ANION GAP 5 mmol/L (5-15); ANISOCYTOSIS 1+; BASOPHILS # (AUTO) 0.04 x10^3/uL (0-0.1); BASOPHILS % (AUTO) 1 % (0-1); CALCIUM 8.8 mg/dL (8.5-10.1); CHLORIDE 105 mmol/L (98-107); EOSINOPHILS # (AUTO) 0.12 x10^3/uL (0-0.4); EOSINOPHILS % (AUTO) 2 % (1-7); LYMPHOCYTES # (AUTO) 1.79 x10^3/uL (1-3.4); LYMPHOCYTES % (AUTO) 28 % (22-44); MD MORPH REVIEW ONLY; MONOCYTES # (AUTO) 0.56 x10^3/uL (0.2-0.8); MONOCYTES % (AUTO) 9 % (2-9); NEUTROPHILS # (AUTO) 3.97 x10^3/uL (1.8-6.8); NEUTROPHILS % (AUTO) 61 % (42-75)
[2019-02-08 04:23] LABS: <PLATELET ESTIMATE> ADEQUATE; <PLT MORPHOLOGY> NORMAL PLT MORPH; OVALOCYTES 1+
[2019-02-08 04:27] LABS: ALANINE AMINOTRANSFERASE 10 U/L (12-78); ALKALINE PHOSPHATASE 100 U/L (45-117); BILIRUBIN,TOTAL 0.2 mg/dL (0.2-1.0); CREATININE 0.32 mg/dL (0.55-1.02); TOTAL PROTEIN 6.2 g/dL (6.4-8.2)
[2019-02-08 06:38] VITALS: BP 97/65
[2019-02-08] MEDS: LINEZOLID PMX 600MG/300ML 300 ML IV SCH ×2 (08:00→21:27)
[2019-02-08] MEDS: POTASSIUM CHLORIDE 20 MEQ TAB.ER.PRT PO SCH ×2 (08:30→14:30)
[2019-02-08] MEDS: VALPROATE SODIUM 250 MG/5 ML ORAL SOLN PO/NG SCH ×2 (09:00→21:27)
[2019-02-08] MEDS: BISACODYL 10 MG SUPP HOMEMEDPR SCH (09:00)
[2019-02-08] MEDS: OXYcodone 5 MG/5 ML ORAL.SOL UDC PO/NG PRN (11:01)
[2019-02-08 13:50] VITALS: BP 102/67
[2019-02-08 19:56] VITALS: BP 108/67
[2019-02-08] MEDS: LURASIDONE 20 MG TABLET PO SCH (21:28)
[2019-02-08] MEDS: TRAZODONE 100MG TABLET PO SCH (21:28)
[2019-02-08] MEDS: QUETIAPINE 100MG TABLET PO SCH (21:28)
[2019-02-08] MEDS: ENOXAPARIN 40 MG/0.4 ML SQ SCH (21:31)
[2019-02-09 00:53] VITALS: BP 106/55
[2019-02-09] MEDS: PIPERACILLIN/TAZO/PMX 3.375GM 50 ML IV SCH ×3 (03:43→20:11)
[2019-02-09] MEDS: VALPROATE SODIUM 250 MG/5 ML ORAL SOLN PO/NG SCH ×2 (08:23→20:12)
[2019-02-09] MEDS: BISACODYL 10 MG SUPP HOMEMEDPR SCH (09:00)
[2019-02-09] MEDS: LINEZOLID PMX 600MG/300ML 300 ML IV SCH ×2 (09:30→21:30)
[2019-02-09 11:15] VITALS: BP 103/70
[2019-02-09 16:31] VITALS: BP 105/68
[2019-02-09 18:55] VITALS: BP 103/61
[2019-02-09] MEDS: QUETIAPINE 100MG TABLET PO SCH (20:11)
[2019-02-09] MEDS: TRAZODONE 100MG TABLET PO SCH (20:11)
[2019-02-09] MEDS: LURASIDONE 20 MG TABLET PO SCH (20:11)
[2019-02-09] MEDS: ENOXAPARIN 40 MG/0.4 ML SQ SCH (20:12)
[2019-02-10 01:22] VITALS: BP 98/61
[2019-02-10] MEDS: PIPERACILLIN/TAZO/PMX 3.375GM 50 ML IV SCH ×3 (04:26→19:58)
[2019-02-10] MEDS: BISACODYL 10 MG SUPP HOMEMEDPR SCH (08:27)
[2019-02-10] MEDS: LINEZOLID PMX 600MG/300ML 300 ML IV SCH ×2 (08:27→21:18)
[2019-02-10] MEDS: VALPROATE SODIUM 250 MG/5 ML ORAL SOLN PO/NG SCH ×2 (08:27→21:00)
[2019-02-10 08:30] VITALS: BP 99/61
[2019-02-10] MEDS: OXYcodone 5 MG/5 ML ORAL.SOL UDC PO/NG PRN (10:47)
[2019-02-10 15:12] VITALS: BP 99/64
[2019-02-10 18:49] VITALS: BP 101/67
[2019-02-10] MEDS: LURASIDONE 20 MG TABLET PO SCH (21:00)
[2019-02-10] MEDS: QUETIAPINE 100MG TABLET PO SCH (21:00)
[2019-02-10] MEDS: TRAZODONE 100MG TABLET PO SCH (21:00)
[2019-02-11 00:46] VITALS: BP 125/81
[2019-02-11] MEDS: BISACODYL 10 MG SUPP HOMEMEDPR SCH (00:49)
[2019-02-11] MEDS: ENOXAPARIN 40 MG/0.4 ML SQ SCH ×2 (00:50→20:12)
[2019-02-11 04:25] LABS: INTERNATIONAL NORMALIZED RATIO 1.04 (0.93-1.1); PROTHROMBIN TIME 10.9 Seconds (9.6-11.5)
[2019-02-11 04:39] LABS: ANION GAP 5 mmol/L (5-15); CALCIUM 8.9 mg/dL (8.5-10.1); CHLORIDE 106 mmol/L (98-107)
[2019-02-11 04:40] LABS: CREATININE 0.29 mg/dL (0.55-1.02)
[2019-02-11] MEDS: PIPERACILLIN/TAZO/PMX 3.375GM 50 ML IV SCH ×3 (04:43→20:12)
[2019-02-11 05:39] LABS: MEAN CORPUSCULAR HEMOGLOBIN 28.6 pg (27.0-34.8); MEAN CORPUSCULAR VOLUME 89.5 fL (80-100); MEAN PLATELET VOLUME 8.3 fL (7.4-10.4); PLATELET COUNT 256 x10^3/uL (130-400); RED BLOOD COUNT 3.55 x10^6/uL (3.82-5.3); RED CELL DISTRIBUTION WIDTH 24.6 % (9.6-15.2)
[2019-02-11 05:41] LABS: BASOPHILS # (AUTO) 0.02 x10^3/uL (0-0.1); BASOPHILS % (AUTO) 0 % (0-1); EOSINOPHILS # (AUTO) 0.11 x10^3/uL (0-0.4); EOSINOPHILS % (AUTO) 1 % (1-7); LYMPHOCYTES # (AUTO) 1.47 x10^3/uL (1-3.4); LYMPHOCYTES % (AUTO) 18 % (22-44); MD SCAN; MONOCYTES # (AUTO) 0.55 x10^3/uL (0.2-0.8); MONOCYTES % (AUTO) 7 % (2-9); NEUTROPHILS # (AUTO) 6.12 x10^3/uL (1.8-6.8); NEUTROPHILS % (AUTO) 74 % (42-75)
[2019-02-11 09:19] VITALS: BP 134/88
[2019-02-11] MEDS: LINEZOLID PMX 600MG/300ML 300 ML IV SCH ×2 (10:13→21:40)
[2019-02-11] MEDS: VALPROATE SODIUM 250 MG/5 ML ORAL SOLN PO/NG SCH ×2 (10:13→20:12)
[2019-02-11] MEDS ORDERED: POTASSIUM CHLORIDE 10% 40 MEQ/30 ML UDC PO SCH (11:00)
[2019-02-11] MEDS: POTASSIUM CHLORIDE 20 MEQ PACKET PO SCH ×2 (12:42→20:11)
[2019-02-11 13:02] VITALS: BP 108/74
[2019-02-11 19:34] VITALS: BP 101/65
[2019-02-11] MEDS: QUETIAPINE 100MG TABLET PO SCH (20:11)
[2019-02-11] MEDS: TRAZODONE 100MG TABLET PO SCH (20:11)
[2019-02-11] MEDS: LURASIDONE 20 MG TABLET PO SCH (20:11)
[2019-02-12 01:10] VITALS: BP 100/61
[2019-02-12] MEDS: PIPERACILLIN/TAZO/PMX 3.375GM 50 ML IV SCH ×3 (03:51→20:47)
[2019-02-12 08:53] VITALS: BP 104/84
[2019-02-12] MEDS: BISACODYL 10 MG SUPP HOMEMEDPR SCH (09:00)
[2019-02-12] MEDS: OXYcodone 5 MG/5 ML ORAL.SOL UDC PO/NG PRN (09:25)
[2019-02-12] MEDS: LINEZOLID PMX 600MG/300ML 300 ML IV SCH ×2 (09:25→22:16)
[2019-02-12] MEDS: POTASSIUM CHLORIDE 20 MEQ PACKET PO SCH ×2 (09:25→20:49)
[2019-02-12 13:10] VITALS: BP 105/67
[2019-02-12] MEDS: VALPROATE SODIUM 250 MG/5 ML ORAL SOLN PO/NG SCH ×2 (13:19→20:59)
[2019-02-12 19:33] VITALS: BP 141/71
[2019-02-12] MEDS: TRAZODONE 100MG TABLET PO SCH (20:48)
[2019-02-12] MEDS: LURASIDONE 20 MG TABLET PO SCH (20:49)
[2019-02-12] MEDS: QUETIAPINE 100MG TABLET PO SCH (20:49)
[2019-02-13 01:31] VITALS: BP 92/61
[2019-02-13 05:21] LABS: INTERNATIONAL NORMALIZED RATIO 1.02 (0.93-1.1); PROTHROMBIN TIME 10.7 Seconds (9.6-11.5)
[2019-02-13 05:28] LABS: ALANINE AMINOTRANSFERASE 18 U/L (12-78); ALBUMIN 2.2 g/dL (3.4-5.0); ANION GAP 5 mmol/L (5-15); CHLORIDE 107 mmol/L (98-107); CREATININE 0.23 mg/dL (0.55-1.02); MEAN CORPUSCULAR HGB CONC 32.6 g/dL (32.4-35.8); MEAN CORPUSCULAR VOLUME 91.9 fL (80-100); MEAN PLATELET VOLUME 8.3 fL (7.4-10.4); PLATELET COUNT 251 x10^3/uL (130-400); RED CELL DISTRIBUTION WIDTH 26.9 % (9.6-15.2)
[2019-02-13 05:30] LABS: ALKALINE PHOSPHATASE 108 U/L (45-117); BILIRUBIN,TOTAL 0.4 mg/dL (0.2-1.0); TOTAL PROTEIN 6.5 g/dL (6.4-8.2)
[2019-02-13] MEDS: PIPERACILLIN/TAZO/PMX 3.375GM 50 ML IV SCH ×3 (05:31→20:24)
[2019-02-13 05:52] LABS: BASOPHILS # (AUTO) 0.03 x10^3/uL (0-0.1); BASOPHILS % (AUTO) 1 % (0-1); EOSINOPHILS # (AUTO) 0.18 x10^3/uL (0-0.4); EOSINOPHILS % (AUTO) 3 % (1-7); LYMPHOCYTES # (AUTO) 1.49 x10^3/uL (1-3.4); LYMPHOCYTES % (AUTO) 28 % (22-44); MD SCAN; MONOCYTES # (AUTO) 0.46 x10^3/uL (0.2-0.8); MONOCYTES % (AUTO) 9 % (2-9); NEUTROPHILS # (AUTO) 3.15 x10^3/uL (1.8-6.8); NEUTROPHILS % (AUTO) 59 % (42-75)
[2019-02-13 07:57] VITALS: BP 105/70
[2019-02-13] MEDS ORDERED: CEFAZOLIN PMX 2GM/100ML 100 ML IV ONE (08:00)
[2019-02-13] MEDS: VALPROATE SODIUM 250 MG/5 ML ORAL SOLN PO/NG SCH ×2 (09:00→20:26)
[2019-02-13] MEDS: BISACODYL 10 MG SUPP HOMEMEDPR SCH (09:00)
[2019-02-13] MEDS ORDERED: HYDROmorphone 2 MG/ML, 1ML IVPush PRN (09:00)
[2019-02-13] MEDS ORDERED: MIDAZOLAM 1 MG/ML, 2ML IV PRN (09:00)
[2019-02-13] MEDS ORDERED: ONDANSETRON 2MG/ML, 2ML IV PRN (09:00)
[2019-02-13] MEDS ORDERED: FENTANYL PF 100 MCG/2ML IV PRN (09:00)
[2019-02-13] MEDS ORDERED: PROPOFOL 10 MG/ML, 100ML IV ONE (09:11)
[2019-02-13] MEDS: LINEZOLID PMX 600MG/300ML 300 ML IV SCH (11:43)
[2019-02-13 13:44] VITALS: BP 105/72
[2019-02-13] MEDS ORDERED: POTASSIUM CHLORIDE 20 MEQ in DEXTROSE 5% 1,000 ML IV SCH (18:00)
[2019-02-13] MEDS: ENOXAPARIN 40 MG/0.4 ML SQ SCH (20:24)
[2019-02-13] MEDS: LURASIDONE 20 MG TABLET PO SCH (20:24)
[2019-02-13] MEDS: QUETIAPINE 100MG TABLET PO SCH (20:25)
[2019-02-13] MEDS: TRAZODONE 100MG TABLET PO SCH (20:25)
[2019-02-13 20:42] VITALS: BP 120/53
[2019-02-14 02:27] VITALS: BP 92/61
[2019-02-14] MEDS: PIPERACILLIN/TAZO/PMX 3.375GM 50 ML IV SCH ×3 (04:38→20:17)
[2019-02-14 08:08] VITALS: BP 105/70
[2019-02-14] MEDS: BISACODYL 10 MG SUPP HOMEMEDPR SCH (09:40)
[2019-02-14] MEDS: VALPROATE SODIUM 250 MG/5 ML ORAL SOLN PO/NG SCH ×2 (09:42→20:18)
[2019-02-14 13:05] VITALS: BP 106/62
[2019-02-14] MEDS: LINEZOLID PMX 600MG/300ML 300 ML IV SCH ×2 (13:23)
[2019-02-14] MEDS ORDERED: POTASSIUM CHLORIDE 20 MEQ in DEXTROSE 5% 1,000 ML IV SCH (18:00)
[2019-02-14 18:48] VITALS: BP 116/68
[2019-02-14] MEDS: LURASIDONE 20 MG TABLET PO SCH (20:19)
[2019-02-14] MEDS: ENOXAPARIN 40 MG/0.4 ML SQ SCH (20:19)
[2019-02-14] MEDS: QUETIAPINE 100MG TABLET PO SCH (20:19)
[2019-02-14] MEDS: TRAZODONE 100MG TABLET PO SCH (20:19)
[2019-02-15 01:00] VITALS: BP 113/70
[2019-02-15] MEDS: LINEZOLID PMX 600MG/300ML 300 ML IV SCH ×2 (01:01→12:25)
[2019-02-15] MEDS: PIPERACILLIN/TAZO/PMX 3.375GM 50 ML IV SCH ×3 (04:27→20:16)
[2019-02-15 04:47] LABS: HCT (SEDRATE) 29.8 % (34.6-47.8)
[2019-02-15 04:49] LABS: MEAN CORPUSCULAR HGB CONC 32.5 g/dL (32.4-35.8); MEAN CORPUSCULAR VOLUME 92.4 fL (80-100); MEAN PLATELET VOLUME 8.7 fL (7.4-10.4); PLATELET COUNT 210 x10^3/uL (130-400); RED BLOOD COUNT 3.26 x10^6/uL (3.82-5.3)
[2019-02-15 04:59] LABS: ALANINE AMINOTRANSFERASE 22 U/L (12-78); ANION GAP 3 mmol/L (5-15); CALCIUM 8.8 mg/dL (8.5-10.1); CHLORIDE 103 mmol/L (98-107); CREATININE 0.25 mg/dL (0.55-1.02)
[2019-02-15 05:06] LABS: ALKALINE PHOSPHATASE 104 U/L (45-117); BILIRUBIN,TOTAL 0.7 mg/dL (0.2-1.0); TOTAL PROTEIN 6.2 g/dL (6.4-8.2)
[2019-02-15 05:47] LABS: BASOPHILS # (AUTO) 0.03 x10^3/uL (0-0.1); BASOPHILS % (AUTO) 1 % (0-1); EOSINOPHILS # (AUTO) 0.12 x10^3/uL (0-0.4); EOSINOPHILS % (AUTO) 2 % (1-7); LYMPHOCYTES # (AUTO) 1.72 x10^3/uL (1-3.4); LYMPHOCYTES % (AUTO) 31 % (22-44); MD SCAN; MONOCYTES # (AUTO) 0.51 x10^3/uL (0.2-0.8); MONOCYTES % (AUTO) 9 % (2-9); NEUTROPHILS % (AUTO) 57 % (42-75)
[2019-02-15 07:21] VITALS: BP 97/65
[2019-02-15] MEDS: POTASSIUM CHLORIDE 20 MEQ PACKET PO SCH ×3 (10:00→17:07)
[2019-02-15] MEDS: VALPROATE SODIUM 250 MG/5 ML ORAL SOLN PO/NG SCH ×2 (10:00→20:17)
[2019-02-15] MEDS: BISACODYL 10 MG SUPP HOMEMEDPR SCH (10:00)
[2019-02-15] MEDS: OXYcodone 5 MG/5 ML ORAL.SOL UDC PO/NG PRN (10:00)
[2019-02-15 12:35] VITALS: BP 106/65
[2019-02-15 19:55] VITALS: BP 116/80
[2019-02-15] MEDS: ENOXAPARIN 40 MG/0.4 ML SQ SCH (20:17)
[2019-02-15] MEDS: TRAZODONE 100MG TABLET PO SCH (20:17)
[2019-02-15] MEDS: QUETIAPINE 100MG TABLET PO SCH (20:17)
[2019-02-15] MEDS: LURASIDONE 20 MG TABLET PO SCH (20:17)
[2019-02-16] MEDS: LINEZOLID PMX 600MG/300ML 300 ML IV SCH ×3 (00:41→23:20)
[2019-02-16 01:22] VITALS: BP 105/72
[2019-02-16] MEDS: PIPERACILLIN/TAZO/PMX 3.375GM 50 ML IV SCH ×2 (05:04→17:03)
[2019-02-16 07:45] VITALS: BP 108/68
[2019-02-16] MEDS: POTASSIUM CHLORIDE 20 MEQ PACKET PO SCH ×3 (10:00→17:03)
[2019-02-16] MEDS: VALPROATE SODIUM 250 MG/5 ML ORAL SOLN PO/NG SCH ×2 (10:00→20:56)
[2019-02-16] MEDS: BISACODYL 10 MG SUPP HOMEMEDPR SCH (10:00)
[2019-02-16 12:45] VITALS: BP 101/67
[2019-02-16 18:33] VITALS: BP 133/79
[2019-02-16] MEDS: ENOXAPARIN 40 MG/0.4 ML SQ SCH (20:55)
[2019-02-16] MEDS: LURASIDONE 20 MG TABLET PO SCH (20:56)
[2019-02-16] MEDS: QUETIAPINE 100MG TABLET PO SCH (20:57)
[2019-02-16] MEDS: TRAZODONE 100MG TABLET PO SCH (20:57)
[2019-02-17 01:14] VITALS: BP 103/70
[2019-02-17] MEDS: PIPERACILLIN/TAZO/PMX 3.375GM 50 ML IV SCH ×3 (01:28→18:46)
[2019-02-17 07:32] VITALS: BP 100/68
[2019-02-17] MEDS: VALPROATE SODIUM 250 MG/5 ML ORAL SOLN PO/NG SCH ×2 (10:12→20:58)
[2019-02-17] MEDS: OXYcodone 5 MG/5 ML ORAL.SOL UDC PO/NG PRN ×2 (10:13→21:05)
[2019-02-17] MEDS: BISACODYL 10 MG SUPP HOMEMEDPR SCH (10:13)
[2019-02-17 12:08] VITALS: BP 107/69
[2019-02-17] MEDS: LINEZOLID PMX 600MG/300ML 300 ML IV SCH (13:13)
[2019-02-17 19:04] VITALS: BP 103/71
[2019-02-17] MEDS: LURASIDONE 20 MG TABLET PO SCH (20:58)
[2019-02-17] MEDS: QUETIAPINE 100MG TABLET PO SCH (20:58)
[2019-02-17] MEDS: TRAZODONE 100MG TABLET PO SCH (20:58)
[2019-02-17] MEDS: ENOXAPARIN 40 MG/0.4 ML SQ SCH (20:58)
[2019-02-18] MEDS: PIPERACILLIN/TAZO/PMX 3.375GM 50 ML IV SCH ×3 (00:35→17:01)
[2019-02-18] MEDS: LINEZOLID PMX 600MG/300ML 300 ML IV SCH ×2 (00:51→12:51)
[2019-02-18 00:57] VITALS: BP 108/74
[2019-02-18] MEDS ORDERED: CATHFLO-ALTEPLASE 2 MG/2 ML CATHFLUSH ONE (05:00)
[2019-02-18 06:12] LABS: MEAN CORPUSCULAR HEMOGLOBIN 31.1 pg (27.0-34.8); MEAN CORPUSCULAR HGB CONC 33.5 g/dL (32.4-35.8); MEAN PLATELET VOLUME 8.3 fL (7.4-10.4); PLATELET COUNT 248 x10^3/uL (130-400); RED BLOOD COUNT 3.42 x10^6/uL (3.82-5.3); RED CELL DISTRIBUTION WIDTH 27.5 % (9.6-15.2)
[2019-02-18 06:15] LABS: ANION GAP 6 mmol/L (5-15); CALCIUM 8.8 mg/dL (8.5-10.1); CHLORIDE 105 mmol/L (98-107)
[2019-02-18 06:30] LABS: BASOPHILS # (AUTO) 0.03 x10^3/uL (0-0.1); BASOPHILS % (AUTO) 1 % (0-1); EOSINOPHILS # (AUTO) 0.27 x10^3/uL (0-0.4); EOSINOPHILS % (AUTO) 5 % (1-7); LYMPHOCYTES % (AUTO) 27 % (22-44); MD SCAN; MONOCYTES # (AUTO) 0.53 x10^3/uL (0.2-0.8); MONOCYTES % (AUTO) 10 % (2-9); NEUTROPHILS # (AUTO) 3.21 x10^3/uL (1.8-6.8); NEUTROPHILS % (AUTO) 58 % (42-75)
[2019-02-18 08:05] VITALS: BP 102/67
[2019-02-18] MEDS: VALPROATE SODIUM 250 MG/5 ML ORAL SOLN PO/NG SCH ×2 (08:07→21:33)
[2019-02-18] MEDS: BISACODYL 10 MG SUPP HOMEMEDPR SCH (08:08)
[2019-02-18] MEDS: OXYcodone 5 MG/5 ML ORAL.SOL UDC PO/NG PRN ×5 (08:08→21:33)
[2019-02-18 13:59] VITALS: BP 104/67
[2019-02-18 18:36] VITALS: BP 121/81
[2019-02-18] MEDS: LURASIDONE 20 MG TABLET PO SCH (21:33)
[2019-02-18] MEDS: ENOXAPARIN 40 MG/0.4 ML SQ SCH (21:33)
[2019-02-18] MEDS: TRAZODONE 100MG TABLET PO SCH (21:33)
[2019-02-18] MEDS: QUETIAPINE 100MG TABLET PO SCH (21:33)
[2019-02-19] MEDS: PIPERACILLIN/TAZO/PMX 3.375GM 50 ML IV SCH ×3 (00:36→17:25)
[2019-02-19] MEDS: LINEZOLID PMX 600MG/300ML 300 ML IV SCH ×2 (01:07→13:08)
[2019-02-19 01:14] VITALS: BP 105/72
[2019-02-19] MEDS: OXYcodone 5 MG/5 ML ORAL.SOL UDC PO/NG PRN ×3 (05:42→17:25)
[2019-02-19 07:19] VITALS: BP 115/62
[2019-02-19] MEDS: VALPROATE SODIUM 250 MG/5 ML ORAL SOLN PO/NG SCH ×2 (09:28→20:41)
[2019-02-19] MEDS: BISACODYL 10 MG SUPP HOMEMEDPR SCH (09:28)
[2019-02-19 14:00] VITALS: BP 105/68
[2019-02-19 20:01] VITALS: BP 107/66
[2019-02-19] MEDS: QUETIAPINE 100MG TABLET PO SCH (20:41)
[2019-02-19] MEDS: TRAZODONE 100MG TABLET PO SCH (20:41)
[2019-02-19] MEDS: LURASIDONE 20 MG TABLET PO SCH (20:41)
[2019-02-19] MEDS: ENOXAPARIN 40 MG/0.4 ML SQ SCH (20:43)
[2019-02-19] MEDS ORDERED: VALPROATE SODIUM 250 MG/5 ML ORAL SOLN PO/NG SCH (21:00)
[2019-02-20] MEDS: PIPERACILLIN/TAZO/PMX 3.375GM 50 ML IV SCH ×3 (00:35→17:11)
[2019-02-20 01:07] VITALS: BP 103/70
[2019-02-20] MEDS: LINEZOLID PMX 600MG/300ML 300 ML IV SCH ×2 (01:20→13:45)
[2019-02-20] MEDS: OXYcodone 5 MG/5 ML ORAL.SOL UDC PO/NG PRN ×3 (05:24→13:45)
[2019-02-20 07:45] VITALS: BP 103/66
[2019-02-20] MEDS: BISACODYL 10 MG SUPP HOMEMEDPR SCH (09:37)
[2019-02-20] MEDS: VALPROATE SODIUM 250 MG/5 ML ORAL SOLN PO/NG SCH ×2 (09:37→22:43)
[2019-02-20 13:40] VITALS: BP 113/78
[2019-02-20 13:58] LABS: ALANINE AMINOTRANSFERASE 30 U/L (12-78); ALBUMIN 2.2 g/dL (3.4-5.0); ANION GAP 5 mmol/L (5-15); CALCIUM 8.9 mg/dL (8.5-10.1); CHLORIDE 104 mmol/L (98-107)
[2019-02-20 14:00] LABS: ALKALINE PHOSPHATASE 116 U/L (45-117); BILIRUBIN,TOTAL 0.4 mg/dL (0.2-1.0); TOTAL PROTEIN 6.4 g/dL (6.4-8.2)
[2019-02-20 14:01] LABS: BASOPHILS # (AUTO) 0.04 x10^3/uL (0-0.1); BASOPHILS % (AUTO) 1 % (0-1); EOSINOPHILS # (AUTO) 0.17 x10^3/uL (0-0.4); EOSINOPHILS % (AUTO) 2 % (1-7); LYMPHOCYTES # (AUTO) 1.57 x10^3/uL (1-3.4); LYMPHOCYTES % (AUTO) 21 % (22-44); MD MORPH REVIEW ONLY; MEAN CORPUSCULAR HEMOGLOBIN 30.5 pg (27.0-34.8); MEAN CORPUSCULAR HGB CONC 32.5 g/dL (32.4-35.8); MEAN CORPUSCULAR VOLUME 93.9 fL (80-100); MEAN PLATELET VOLUME 8.8 fL (7.4-10.4); MONOCYTES % (AUTO) 12 % (2-9); NEUTROPHILS # (AUTO) 4.89 x10^3/uL (1.8-6.8); NEUTROPHILS % (AUTO) 65 % (42-75); PLATELET COUNT 246 x10^3/uL (130-400); RED BLOOD COUNT 3.36 x10^6/uL (3.82-5.3); RED CELL DISTRIBUTION WIDTH 28.1 % (9.6-15.2)
[2019-02-20 14:26] LABS: ANISOCYTOSIS 2+; OVALOCYTES 1+; POLYCHROMASIA 1+
[2019-02-20 14:27] LABS: <PLATELET ESTIMATE> ADEQUATE; LARGE PLATELETS 1+
[2019-02-20 19:10] VITALS: BP 98/61
[2019-02-20] MEDS: ENOXAPARIN 40 MG/0.4 ML SQ SCH (22:42)
[2019-02-20] MEDS: QUETIAPINE 100MG TABLET PO SCH (22:42)
[2019-02-20] MEDS: LURASIDONE 20 MG TABLET PO SCH (22:43)
[2019-02-20] MEDS: TRAZODONE 100MG TABLET PO SCH (22:43)
[2019-02-21 00:41] VITALS: BP 91/60
[2019-02-21] MEDS: PIPERACILLIN/TAZO/PMX 3.375GM 50 ML IV SCH ×3 (00:55→16:10)
[2019-02-21] MEDS: LINEZOLID PMX 600MG/300ML 300 ML IV SCH ×2 (01:36→12:38)
[2019-02-21 08:14] VITALS: BP 105/71
[2019-02-21] MEDS: VALPROATE SODIUM 250 MG/5 ML ORAL SOLN PO/NG SCH ×2 (08:16→22:25)
[2019-02-21] MEDS: BISACODYL 10 MG SUPP HOMEMEDPR SCH (08:16)
[2019-02-21] MEDS: OXYcodone 5 MG/5 ML ORAL.SOL UDC PO/NG PRN ×2 (08:31→12:45)
[2019-02-21 12:41] VITALS: BP 116/74
[2019-02-21 18:35] VITALS: BP 100/65
[2019-02-21] MEDS: TRAZODONE 100MG TABLET PO SCH (22:24)
[2019-02-21] MEDS: LURASIDONE 20 MG TABLET PO SCH (22:24)
[2019-02-21] MEDS: QUETIAPINE 100MG TABLET PO SCH (22:25)
[2019-02-21] MEDS: ENOXAPARIN 40 MG/0.4 ML SQ SCH (22:26)
[2019-02-22] MEDS: PIPERACILLIN/TAZO/PMX 3.375GM 50 ML IV SCH ×3 (00:50→17:15)
[2019-02-22 01:29] VITALS: BP 98/63
[2019-02-22] MEDS: LINEZOLID PMX 600MG/300ML 300 ML IV SCH ×2 (01:32→13:34)
[2019-02-22 04:25] LABS: HCT (SEDRATE) 28.7 % (34.6-47.8)
[2019-02-22 04:27] LABS: MEAN CORPUSCULAR HEMOGLOBIN 30.8 pg (27.0-34.8); MEAN CORPUSCULAR HGB CONC 32.8 g/dL (32.4-35.8); MEAN CORPUSCULAR VOLUME 93.8 fL (80-100); MEAN PLATELET VOLUME 8.9 fL (7.4-10.4); PLATELET COUNT 248 x10^3/uL (130-400); RED BLOOD COUNT 3.01 x10^6/uL (3.82-5.3); RED CELL DISTRIBUTION WIDTH 28.2 % (9.6-15.2)
[2019-02-22 04:39] LABS: ALANINE AMINOTRANSFERASE 23 U/L (12-78); ANION GAP 3 mmol/L (5-15); CALCIUM 8.9 mg/dL (8.5-10.1); CHLORIDE 101 mmol/L (98-107)
[2019-02-22 04:46] LABS: ALKALINE PHOSPHATASE 98 U/L (45-117); BASOPHILS # (AUTO) 0.03 x10^3/uL (0-0.1); BASOPHILS % (AUTO) 1 % (0-1); BILIRUBIN,TOTAL 0.5 mg/dL (0.2-1.0); CREATININE 0.32 mg/dL (0.55-1.02); EOSINOPHILS # (AUTO) 0.16 x10^3/uL (0-0.4); EOSINOPHILS % (AUTO) 3 % (1-7); LYMPHOCYTES % (AUTO) 28 % (22-44); MD SCAN; MONOCYTES # (AUTO) 0.82 x10^3/uL (0.2-0.8); MONOCYTES % (AUTO) 14 % (2-9); NEUTROPHILS # (AUTO) 3.36 x10^3/uL (1.8-6.8); NEUTROPHILS % (AUTO) 55 % (42-75); TOTAL PROTEIN 5.9 g/dL (6.4-8.2)
[2019-02-22 07:30] VITALS: BP 107/69
[2019-02-22] MEDS: POTASSIUM CHLORIDE 20 MEQ PACKET GT SCH ×2 (08:55→22:03)
[2019-02-22] MEDS: BISACODYL 10 MG SUPP HOMEMEDPR SCH (08:55)
[2019-02-22] MEDS: OXYcodone 5 MG/5 ML ORAL.SOL UDC PO/NG PRN ×2 (08:56→13:34)
[2019-02-22] MEDS: VALPROATE SODIUM 250 MG/5 ML ORAL SOLN PO/NG SCH ×2 (08:56→22:04)
[2019-02-22 13:45] VITALS: BP 122/80
[2019-02-22 19:19] VITALS: BP 100/65
[2019-02-22] MEDS: ENOXAPARIN 40 MG/0.4 ML SQ SCH (20:29)
[2019-02-22] MEDS: LURASIDONE 20 MG TABLET PO SCH (22:04)
[2019-02-22] MEDS: TRAZODONE 100MG TABLET PO SCH (22:04)
[2019-02-22] MEDS: QUETIAPINE 100MG TABLET PO SCH (22:04)
[2019-02-23 00:27] VITALS: BP 94/62
[2019-02-23] MEDS: PIPERACILLIN/TAZO/PMX 3.375GM 50 ML IV SCH ×3 (00:57→17:38)
[2019-02-23] MEDS: LINEZOLID PMX 600MG/300ML 300 ML IV SCH ×2 (01:41→13:49)
[2019-02-23 04:51] LABS: ANION GAP 3 mmol/L (5-15); CALCIUM 8.9 mg/dL (8.5-10.1); CHLORIDE 105 mmol/L (98-107)
[2019-02-23 04:53] LABS: CREATININE 0.34 mg/dL (0.55-1.02)
[2019-02-23 07:58] VITALS: BP 107/69
[2019-02-23] MEDS: BISACODYL 10 MG SUPP HOMEMEDPR SCH (10:54)
[2019-02-23] MEDS: VALPROATE SODIUM 250 MG/5 ML ORAL SOLN PO/NG SCH ×2 (10:54→22:18)
[2019-02-23 12:39] VITALS: BP 104/67
[2019-02-23 20:42] VITALS: BP 117/81
[2019-02-23] MEDS: ENOXAPARIN 40 MG/0.4 ML SQ SCH (22:11)
[2019-02-23] MEDS: LURASIDONE 20 MG TABLET PO SCH (22:11)
[2019-02-23] MEDS: QUETIAPINE 100MG TABLET PO SCH (22:11)
[2019-02-23] MEDS: TRAZODONE 100MG TABLET PO SCH (22:11)
[2019-02-24] MEDS: PIPERACILLIN/TAZO/PMX 3.375GM 50 ML IV SCH ×3 (00:58→17:34)
[2019-02-24 01:12] VITALS: BP 103/71
[2019-02-24] MEDS: LINEZOLID PMX 600MG/300ML 300 ML IV SCH ×2 (01:52→13:00)
[2019-02-24 07:35] VITALS: BP 99/64
[2019-02-24] MEDS: VALPROATE SODIUM 250 MG/5 ML ORAL SOLN PO/NG SCH ×2 (09:53→21:23)
[2019-02-24] MEDS: BISACODYL 10 MG SUPP HOMEMEDPR SCH (09:53)
[2019-02-24] MEDS: OXYcodone 5 MG/5 ML ORAL.SOL UDC PO/NG PRN ×2 (09:56→21:23)
[2019-02-24 13:26] VITALS: BP 128/74
[2019-02-24 20:25] VITALS: BP 115/79
[2019-02-24] MEDS: TRAZODONE 100MG TABLET PO SCH (21:24)
[2019-02-24] MEDS: ENOXAPARIN 40 MG/0.4 ML SQ SCH (21:24)
[2019-02-24] MEDS: QUETIAPINE 100MG TABLET PO SCH (21:24)
[2019-02-24] MEDS: LURASIDONE 20 MG TABLET PO SCH (21:24)
[2019-02-25] MEDS: PIPERACILLIN/TAZO/PMX 3.375GM 50 ML IV SCH ×3 (01:15→17:28)
[2019-02-25 01:18] VITALS: BP 99/66
[2019-02-25] MEDS: LINEZOLID PMX 600MG/300ML 300 ML IV SCH ×2 (01:57→14:07)
[2019-02-25] MEDS: OXYcodone 5 MG/5 ML ORAL.SOL UDC PO/NG PRN ×2 (05:40→21:32)
[2019-02-25 07:45] VITALS: BP 99/61
[2019-02-25] MEDS: BISACODYL 10 MG SUPP HOMEMEDPR SCH (09:12)
[2019-02-25] MEDS: VALPROATE SODIUM 250 MG/5 ML ORAL SOLN PO/NG SCH ×2 (09:12→21:14)
[2019-02-25 13:26] VITALS: BP 95/60
[2019-02-25 21:04] VITALS: BP 141/104
[2019-02-25] MEDS: TRAZODONE 100MG TABLET PO SCH (21:13)
[2019-02-25] MEDS: QUETIAPINE 100MG TABLET PO SCH (21:13)
[2019-02-25] MEDS: LURASIDONE 20 MG TABLET PO SCH (21:14)
[2019-02-25] MEDS: ENOXAPARIN 40 MG/0.4 ML SQ SCH (21:15)
[2019-02-25 21:32] VITALS: BP 105/67
[2019-02-26 00:22] VITALS: BP 92/60
[2019-02-26] MEDS: PIPERACILLIN/TAZO/PMX 3.375GM 50 ML IV SCH ×3 (01:24→18:00)
[2019-02-26] MEDS: LINEZOLID PMX 600MG/300ML 300 ML IV SCH ×2 (02:27→15:59)
[2019-02-26 08:16] VITALS: BP 99/67
[2019-02-26] MEDS: BISACODYL 10 MG SUPP HOMEMEDPR SCH (09:52)
[2019-02-26] MEDS: VALPROATE SODIUM 250 MG/5 ML ORAL SOLN PO/NG SCH ×2 (09:52→21:44)
[2019-02-26] MEDS: OXYcodone 5 MG/5 ML ORAL.SOL UDC PO/NG PRN (09:52)
[2019-02-26 13:55] VITALS: BP 114/71
[2019-02-26 20:19] VITALS: BP 95/58
[2019-02-26] MEDS: LURASIDONE 20 MG TABLET PO SCH (21:00)
[2019-02-26] MEDS: ENOXAPARIN 40 MG/0.4 ML SQ SCH (21:44)
[2019-02-26] MEDS: TRAZODONE 100MG TABLET PO SCH (21:45)
[2019-02-26] MEDS: QUETIAPINE 100MG TABLET PO SCH (21:45)
[2019-02-27] MEDS: PIPERACILLIN/TAZO/PMX 3.375GM 50 ML IV SCH ×3 (01:07→18:36)
[2019-02-27 01:54] VITALS: BP 100/67
[2019-02-27] MEDS: LINEZOLID PMX 600MG/300ML 300 ML IV SCH ×2 (02:05→14:27)
[2019-02-27] MEDS: BISACODYL 10 MG SUPP HOMEMEDPR SCH (10:52)
[2019-02-27] MEDS: VALPROATE SODIUM 250 MG/5 ML ORAL SOLN PO/NG SCH ×2 (10:52→21:58)
[2019-02-27 11:01] VITALS: BP 117/70
[2019-02-27 14:37] VITALS: BP 104/65
[2019-02-27 20:19] VITALS: BP 106/72
[2019-02-27] MEDS: TRAZODONE 100MG TABLET PO SCH (21:58)
[2019-02-27] MEDS: QUETIAPINE 100MG TABLET PO SCH (21:58)
[2019-02-27] MEDS: LURASIDONE 20 MG TABLET PO SCH (21:58)
[2019-02-27] MEDS: ENOXAPARIN 40 MG/0.4 ML SQ SCH (22:08)
[2019-02-28 00:45] VITALS: BP 104/70
[2019-02-28] MEDS: LINEZOLID PMX 600MG/300ML 300 ML IV SCH ×2 (02:02→14:55)
[2019-02-28] MEDS: PIPERACILLIN/TAZO/PMX 3.375GM 50 ML IV SCH ×3 (03:48→19:57)
[2019-02-28 06:07] LABS: CREATININE 0.31 mg/dL (0.55-1.02)
[2019-02-28 08:11] VITALS: BP 100/67
[2019-02-28] MEDS: VALPROATE SODIUM 250 MG/5 ML ORAL SOLN PO/NG SCH ×2 (08:39→21:18)
[2019-02-28] MEDS: BISACODYL 10 MG SUPP HOMEMEDPR SCH (08:39)
[2019-02-28 12:26] VITALS: BP 100/66
[2019-02-28 21:04] VITALS: BP 115/78
[2019-02-28] MEDS: LURASIDONE 20 MG TABLET PO SCH (21:18)
[2019-02-28] MEDS: ENOXAPARIN 40 MG/0.4 ML SQ SCH (21:18)
[2019-02-28] MEDS: QUETIAPINE 100MG TABLET PO SCH (21:19)
[2019-02-28] MEDS: TRAZODONE 100MG TABLET PO SCH (21:19)
[2019-03-01 02:32] VITALS: BP 97/65
[2019-03-01] MEDS: LINEZOLID PMX 600MG/300ML 300 ML IV SCH ×2 (03:41→16:17)
[2019-03-01 04:01] LABS: HCT (SEDRATE) 31.6 % (34.6-47.8)
[2019-03-01 04:14] LABS: ALANINE AMINOTRANSFERASE 24 U/L (12-78); ALBUMIN 2.2 g/dL (3.4-5.0); ANION GAP 7 mmol/L (5-15); CALCIUM 9.2 mg/dL (8.5-10.1); CHLORIDE 105 mmol/L (98-107); CREATININE 0.26 mg/dL (0.55-1.02)
[2019-03-01 04:20] LABS: ALKALINE PHOSPHATASE 110 U/L (45-117); BILIRUBIN,TOTAL 0.3 mg/dL (0.2-1.0); TOTAL PROTEIN 6.2 g/dL (6.4-8.2)
[2019-03-01] MEDS: PIPERACILLIN/TAZO/PMX 3.375GM 50 ML IV SCH ×3 (05:46→23:16)
[2019-03-01 08:55] VITALS: BP 95/63
[2019-03-01] MEDS: BISACODYL 10 MG SUPP HOMEMEDPR SCH (09:39)
[2019-03-01] MEDS: VALPROATE SODIUM 250 MG/5 ML ORAL SOLN PO/NG SCH ×2 (09:46→20:54)
[2019-03-01] MEDS: OXYcodone 5 MG/5 ML ORAL.SOL UDC PO/NG PRN (11:30)
[2019-03-01 14:06] VITALS: BP 106/70
[2019-03-01 19:03] VITALS: BP 107/77
[2019-03-01] MEDS: TRAZODONE 100MG TABLET PO SCH (20:54)
[2019-03-01] MEDS: ENOXAPARIN 40 MG/0.4 ML SQ SCH (20:54)
[2019-03-01] MEDS: QUETIAPINE 100MG TABLET PO SCH (20:54)
[2019-03-01] MEDS: LURASIDONE 20 MG TABLET PO SCH (20:55)
[2019-03-02 01:26] VITALS: BP 101/63
[2019-03-02] MEDS: LINEZOLID PMX 600MG/300ML 300 ML IV SCH ×2 (03:00→15:44)
[2019-03-02] MEDS: PIPERACILLIN/TAZO/PMX 3.375GM 50 ML IV SCH ×3 (07:49→23:07)
[2019-03-02 08:12] VITALS: BP 106/72
[2019-03-02] MEDS: BISACODYL 10 MG SUPP HOMEMEDPR SCH (11:01)
[2019-03-02] MEDS: VALPROATE SODIUM 250 MG/5 ML ORAL SOLN PO/NG SCH ×2 (11:13→20:58)
[2019-03-02 12:38] VITALS: BP 100/80
[2019-03-02 20:15] VITALS: BP 99/69
[2019-03-02] MEDS: QUETIAPINE 100MG TABLET PO SCH (20:57)
[2019-03-02] MEDS: LURASIDONE 20 MG TABLET PO SCH (20:57)
[2019-03-02] MEDS: TRAZODONE 100MG TABLET PO SCH (20:57)
[2019-03-02] MEDS: ENOXAPARIN 40 MG/0.4 ML SQ SCH (20:57)
[2019-03-03 02:23] VITALS: BP 107/70
[2019-03-03] MEDS: LINEZOLID PMX 600MG/300ML 300 ML IV SCH ×2 (03:41→16:12)
[2019-03-03] MEDS: PIPERACILLIN/TAZO/PMX 3.375GM 50 ML IV SCH ×3 (07:33→22:51)
[2019-03-03 07:55] VITALS: BP 110/73
[2019-03-03] MEDS: BISACODYL 10 MG SUPP HOMEMEDPR SCH (09:11)
[2019-03-03] MEDS: VALPROATE SODIUM 250 MG/5 ML ORAL SOLN PO/NG SCH ×2 (09:11→21:02)
[2019-03-03 13:08] VITALS: BP 114/69
[2019-03-03 18:43] VITALS: BP 125/80
[2019-03-03 18:47] VITALS: BP 117/80
[2019-03-03] MEDS: ENOXAPARIN 40 MG/0.4 ML SQ SCH (21:01)
[2019-03-03] MEDS: LURASIDONE 20 MG TABLET PO SCH (21:01)
[2019-03-03] MEDS: QUETIAPINE 100MG TABLET PO SCH (21:01)
[2019-03-03] MEDS: TRAZODONE 100MG TABLET PO SCH (21:01)
[2019-03-04 01:04] VITALS: BP 96/66
[2019-03-04] MEDS: LINEZOLID PMX 600MG/300ML 300 ML IV SCH ×2 (04:09→16:06)
[2019-03-04 07:15] VITALS: BP 102/69
[2019-03-04] MEDS: PIPERACILLIN/TAZO/PMX 3.375GM 50 ML IV SCH ×3 (07:19→23:12)
[2019-03-04] MEDS: BISACODYL 10 MG SUPP HOMEMEDPR SCH (08:50)
[2019-03-04] MEDS: VALPROATE SODIUM 250 MG/5 ML ORAL SOLN PO/NG SCH ×2 (08:51→20:41)
[2019-03-04] MEDS: OXYcodone 5 MG/5 ML ORAL.SOL UDC PO/NG PRN ×2 (10:40→14:55)
[2019-03-04 13:49] VITALS: BP 108/65
[2019-03-04 19:12] VITALS: BP 108/68
[2019-03-04] MEDS: TRAZODONE 100MG TABLET PO SCH (20:40)
[2019-03-04] MEDS: LURASIDONE 20 MG TABLET PO SCH (20:40)
[2019-03-04] MEDS: QUETIAPINE 100MG TABLET PO SCH (20:40)
[2019-03-04] MEDS: ENOXAPARIN 40 MG/0.4 ML SQ SCH (20:41)
[2019-03-05 01:46] VITALS: BP 98/61
[2019-03-05] MEDS: LINEZOLID PMX 600MG/300ML 300 ML IV SCH ×2 (04:14→17:08)
[2019-03-05 05:36] LABS: CREATININE 0.23 mg/dL (0.55-1.02)
[2019-03-05] MEDS: PIPERACILLIN/TAZO/PMX 3.375GM 50 ML IV SCH ×3 (06:42→22:53)
[2019-03-05 08:12] VITALS: BP 103/66
[2019-03-05] MEDS: OXYcodone 5 MG/5 ML ORAL.SOL UDC PO/NG PRN (10:15)
[2019-03-05] MEDS: BISACODYL 10 MG SUPP HOMEMEDPR SCH (10:15)
[2019-03-05] MEDS: VALPROATE SODIUM 250 MG/5 ML ORAL SOLN PO/NG SCH ×2 (10:15→21:29)
[2019-03-05 13:19] VITALS: BP 108/71
[2019-03-05 19:32] VITALS: BP 114/80
[2019-03-05] MEDS: LURASIDONE 20 MG TABLET PO SCH (21:28)
[2019-03-05] MEDS: TRAZODONE 100MG TABLET PO SCH (21:28)
[2019-03-05] MEDS: ENOXAPARIN 40 MG/0.4 ML SQ SCH (21:29)
[2019-03-05] MEDS: QUETIAPINE 100MG TABLET PO SCH (21:29)
[2019-03-06 01:09] VITALS: BP 96/65
[2019-03-06] MEDS: LINEZOLID PMX 600MG/300ML 300 ML IV SCH ×2 (04:02→16:10)
[2019-03-06] MEDS: PIPERACILLIN/TAZO/PMX 3.375GM 50 ML IV SCH ×3 (06:32→22:54)
[2019-03-06 08:35] VITALS: BP 106/72
[2019-03-06] MEDS: BISACODYL 10 MG SUPP HOMEMEDPR SCH (10:21)
[2019-03-06] MEDS: VALPROATE SODIUM 250 MG/5 ML ORAL SOLN PO/NG SCH ×2 (10:22→21:12)
[2019-03-06 13:37] VITALS: BP 100/60
[2019-03-06] MEDS: OXYcodone 5 MG/5 ML ORAL.SOL UDC PO/NG PRN (16:11)
[2019-03-06 18:59] VITALS: BP 102/66
[2019-03-06] MEDS: QUETIAPINE 100MG TABLET PO SCH (21:12)
[2019-03-06] MEDS: LURASIDONE 20 MG TABLET PO SCH (21:12)
[2019-03-06] MEDS: TRAZODONE 100MG TABLET PO SCH (21:13)
[2019-03-06] MEDS: ENOXAPARIN 40 MG/0.4 ML SQ SCH (21:13)
[2019-03-07 01:39] VITALS: BP 97/63
[2019-03-07] MEDS: LINEZOLID PMX 600MG/300ML 300 ML IV SCH (04:10)
[2019-03-07] MEDS: PIPERACILLIN/TAZO/PMX 3.375GM 50 ML IV SCH (06:38)
[2019-03-07 07:20] VITALS: BP 105/71
[2019-03-07] MEDS: BISACODYL 10 MG SUPP HOMEMEDPR SCH (09:00)
[2019-03-07] MEDS: VALPROATE SODIUM 250 MG/5 ML ORAL SOLN PO/NG SCH (09:00)
[2019-03-07] MEDS ORDERED: ACET325T14 GT (11:37)
[2019-03-07] MEDS ORDERED: ENOX40SY4 SQ (11:37)
[2019-03-07] MEDS ORDERED: DOXY100T10 PO (11:39)
[2019-03-07] MEDS ORDERED: CEFD300C37 PO (11:39)
[2019-03-07 13:24] VITALS: BP 101/65
== END 2019-03-07 15:39 | DRG 871 ==
LOC: ED 13:57 → EDIP 15:59 → 4WST 17:20 → 3NE 01-26 19:00
PROVIDERS: ADMIT Hospitalist; ATTEND Hospitalist
PROC: 02HV33Z Insertion of Infusion Device into Superior Vena Cava, Percutaneous Approach (ICD-10-PCS; principal; 2019-01-28)
PROC: B5181ZA Fluoroscopy of Superior Vena Cava using Low Osmolar Contrast, Guidance (ICD-10-PCS; 2019-01-28)
PROC: B548ZZA Ultrasonography of Superior Vena Cava, Guidance (ICD-10-PCS; 2019-01-28)
PROC: 0DH63UZ Insertion of Feeding Device into Stomach, Percutaneous Approach (ICD-10-PCS; 2019-02-13)
DX: A41.9 Sepsis, unspecified organism (principal); E43 Unspecified severe protein-calorie malnutrition; N39.0 Urinary tract infection, site not specified; T83.518A Infection and inflammatory reaction due to other urinary catheter, initial encounter; Z68.1 Body mass index [BMI] 19.9 or less, adult; E87.0 Hyperosmolality and hypernatremia; E87.1 Hypo-osmolality and hyponatremia; M86.152 Other acute osteomyelitis, left femur; B95.2 Enterococcus as the cause of diseases classified elsewhere; B96.20 Unspecified Escherichia coli [E. coli] as the cause of diseases classified elsewhere; D63.8 Anemia in other chronic diseases classified elsewhere; E83.42 Hypomagnesemia; E87.6 Hypokalemia; F79 Unspecified intellectual disabilities; L89.159 Pressure ulcer of sacral region, unspecified stage; R13.12 Dysphagia, oropharyngeal phase; Y84.6 Urinary catheterization as the cause of abnormal reaction of the patient, or of later complication, without mention of misadventure at the time of the procedure; L89.899 Pressure ulcer of other site, unspecified stage; Y83.8 Other surgical procedures as the cause of abnormal reaction of the patient, or of later complication, without mention of misadventure at the time of the procedure; Y92.89 Other specified places as the place of occurrence of the external cause; Z16.21 Resistance to vancomycin; Z74.01 Bed confinement status
CPT/HCPCS: 36415; 36573; 71045; 72195; 74018; 74230; 80048; 80053; 81001; 82040; 82565; 82977; 83605; 83735; 83880; 84100; 84145; 85025; 85610; 85651; 86140; 87040; 87070; 87077; 87086; 87186; 87205; 87400; 93005; 96361; 96365; 99285; B4087; G0378; J0878; J1650; J1885; J2020; J2543; J2704; J2997; J3370; J3480; J7070; C1751; J0690; J3475; J7030; J7040

== ENCOUNTER 2019-12-22 18:37 | Inpatient (IN) | payer MEDICAID ==
[~2019-12-22] VITALS: Ht 157.5 cm; Wt 52.4 kg
[~2019-12-22 18:37] MED LIST: ACET325T14 GT; ACET325T14 PO; AMOX1TAB64 PO; BISA10SU14 RC; CEFD300C37 PO; CIPR500T87 PO; DOXY100T23 PO; ENOX40SY4 SQ; LURA20TA PO; POTA20TA14 PO; QUET100T PO; TRAZ-175 PO; VALP250C PO; VALP250S PO/NG
--- NOTE | 2019-12-22 18:57 | NUR ---
MULIPLE PRESSURE WOUNDS TO BUTTOCK BILAT. NO WOUND VAC PRESENT. LARGE OPEN WOUND TO COCCYX. PT INCONTINENT OF STOOL. AGUILAR CATH PRESENT; CLOUDY YELLOW URINE DRAINING. PEG TUBE PRESENT LUQ. + ARM & LEG
[2019-12-22] MEDS: PLEASE ENTER HEIGHT AND WEIGHT MC SCH ×2 (19:00→23:50)
--- NOTE | 2019-12-22 19:10 | NUR ---
DR FORTE BS FOR EXAM. PIV INITIATED 22 LT WRIST. NS BOLUS HUNG.
--- NOTE | 2019-12-22 19:24 | NUR ---
2ND BLD CX SET DRAWN.
--- NOTE | 2019-12-22 19:45 | NUR ---
WAFFLE MATTRESS PLACED UNDER PT. COCCYX DECUB ULCER CLEANSED; OPTIFFOAM DRESSING PLACED.
[2019-12-22 19:54] LABS: BASOPHILS # (AUTO) 0.04 x10^3/uL (0-0.1); BASOPHILS % (AUTO) 0 % (0-1); EOSINOPHILS # (AUTO) 0.14 x10^3/uL (0-0.4); EOSINOPHILS % (AUTO) 1 % (1-7); LYMPHOCYTES % (AUTO) 11 % (22-44); MD NO; MEAN CORPUSCULAR HEMOGLOBIN 24.4 pg (27.0-34.8); MEAN CORPUSCULAR HGB CONC 31.3 g/dL (32.4-35.8); MEAN CORPUSCULAR VOLUME 78.1 fL (80-100); MONOCYTES # (AUTO) 1.21 x10^3/uL (0.2-0.8); MONOCYTES % (AUTO) 7 % (2-9); NEUTROPHILS # (AUTO) 14.21 x10^3/uL (1.8-6.8); NEUTROPHILS % (AUTO) 81 % (42-75); PLATELET COUNT 535 x10^3/uL (130-400); RED BLOOD COUNT 4.19 x10^6/uL (3.82-5.3); RED CELL DISTRIBUTION WIDTH 19.3 % (9.6-15.2)
--- NOTE | 2019-12-22 19:55 | NUR ---
HIP & CHEST XR DONE
[2019-12-22] MEDS ORDERED: PIPERACILLIN/TAZO/PMX 3.375GM 50 ML IVPB ONE (20:00)
[2019-12-22] MEDS ORDERED: VANCOMYCIN PMX 1GM/200ML 200 ML IVPB ONE (20:00)
[2019-12-22] MEDS ORDERED: VANCOMYCIN PER PHARMACY MC ONE (20:00)
[2019-12-22] MEDS ORDERED: SODIUM CHLORIDE 0.9% 1,000ML IVBOLUS ONE ×2 (20:00→23:30)
[2019-12-22] MEDS ORDERED: PHARMACOKINETIC CONSULTATION MC ONE (20:00)
[2019-12-22 20:04] LABS: ALBUMIN 1.5 g/dL (3.4-5.0); ANION GAP 6 mmol/L (5-15); CALCIUM 8.9 mg/dL (8.5-10.1); CHLORIDE 110 mmol/L (98-107); CREATININE 0.42 mg/dL (0.55-1.02)
[2019-12-22] MEDS ORDERED: DOCU100T3 GT (20:21)
[2019-12-22] MEDS ORDERED: QUET50TA5 PO (20:32)
[2019-12-22] MEDS ORDERED: POLY17PO5 GT (20:32)
[2019-12-22] MEDS ORDERED: ARGI1POW4 GT (20:32)
[2019-12-22] MEDS ORDERED: LIDO6JEL TP (20:32)
[2019-12-22] MEDS ORDERED: MIRT7.5T8 PO (20:32)
[2019-12-22] MEDS ORDERED: [UNRECOGNIZED DRUG - CODE] GT (20:32)
[2019-12-22] MEDS ORDERED: PIPERACILLIN/TAZO/PMX 3.375GM 50 ML ONE (21:34)
--- NOTE | 2019-12-22 21:56 | NUR ---
VANCO INFUSION AND NS BOLUS COMPLETED. ZOSYN ANDREIA, INFUSING AT 100 ML/HR VIA PUMP; IV SITE PATENT.
--- NOTE | 2019-12-22 22:41 | NUR ---
TO CT PER CLAUS
[2019-12-22 22:51] LABS: CULTURE INDICATED? YES; MICROSCOPIC INDICATED
--- NOTE | 2019-12-22 22:51 | NUR ---
RETURNED FROM CT
--- NOTE | 2019-12-22 22:56 | NUR ---
PT REPORT TO JACOBO QUIROZ. PT CARE TRANSFERRED.
--- NOTE | 2019-12-22 22:59 | NUR ---
Report received from JACOBO Araiza. This RN to assume care.
--- NOTE | 2019-12-22 23:59 | NUR ---
Report given to JACOBO Batista. Patient to be transferred to room 302.
[2019-12-23] MEDS: POTASSIUM CHLORIDE 20 MEQ in SODIUM CHLORIDE 0.45% 1,000 ML IV SCH ×2 (00:15→14:16)
[2019-12-23] MEDS: PIPERACILLIN/TAZO/PMX 4.5GM 100 ML IV SCH ×4 (00:15→20:49)
[2019-12-23] MEDS ORDERED: KETOROLAC 30 MG/1 ML IV PRN (00:30)
[2019-12-23] MEDS ORDERED: ONDANSETRON 2MG/ML, 2ML IVPush PRN (00:30)
[2019-12-23] MEDS ORDERED: METHOCARBAMOL 500 MG TABLET PO PRN (00:30)
[2019-12-23] MEDS ORDERED: BISACODYL 10 MG SUPP PR PRN (00:30)
[2019-12-23] MEDS ORDERED: ENALAPRILAT 1.25 MG/ML, 2ML IVPush PRN (00:30)
[2019-12-23] MEDS ORDERED: VANCOMYCIN PER PHARMACY MC PRN (00:30)
[2019-12-23] MEDS ORDERED: ACETAMINOPHEN 325 MG TABLET PO PRN (00:30)
[2019-12-23] MEDS ORDERED: DOCUSATE 100 MG CAPSULE PO PRN (00:30)
[2019-12-23] MEDS ORDERED: POLYETHYLENE GLYCOL 17 GM PACKET PO PRN (00:30)
[2019-12-23] MEDS ORDERED: ONDANSETRON ODT 4 MG PO PRN (00:30)
[2019-12-23] MEDS ORDERED: LABETALOL 5MG/ML, 20ML IVPush PRN (00:30)
[2019-12-23] MEDS: ENOXAPARIN 40 MG/0.4 ML SQ SCH (01:00)
[2019-12-23 01:06] VITALS: BP 102/70
[2019-12-23] MEDS ORDERED: PHARMACOKINETIC CONSULTATION MC ONE (01:30)
[2019-12-23] MEDS ORDERED: PHARMACOKINETIC MONITORING MC PRN (01:30)
[2019-12-23] MEDS: LINEZOLID PMX 600MG/300ML 300 ML IV SCH ×2 (05:03→16:17)
[2019-12-23 06:55] LABS: BASOPHILS # (AUTO) 0.04 x10^3/uL (0-0.1); BASOPHILS % (AUTO) 0 % (0-1); EOSINOPHILS # (AUTO) 0.07 x10^3/uL (0-0.4); EOSINOPHILS % (AUTO) 1 % (1-7); LYMPHOCYTES # (AUTO) 1.26 x10^3/uL (1-3.4); LYMPHOCYTES % (AUTO) 13 % (22-44); MD NO; MEAN CORPUSCULAR HEMOGLOBIN 24.1 pg (27.0-34.8); MEAN CORPUSCULAR HGB CONC 30.6 g/dL (32.4-35.8); MEAN CORPUSCULAR VOLUME 78.8 fL (80-100); MEAN PLATELET VOLUME 8.8 fL (7.4-10.4); MONOCYTES # (AUTO) 0.76 x10^3/uL (0.2-0.8); MONOCYTES % (AUTO) 8 % (2-9); NEUTROPHILS # (AUTO) 7.86 x10^3/uL (1.8-6.8); NEUTROPHILS % (AUTO) 79 % (42-75); PLATELET COUNT 398 x10^3/uL (130-400); RED BLOOD COUNT 3.55 x10^6/uL (3.82-5.3); RED CELL DISTRIBUTION WIDTH 19.6 % (9.6-15.2)
[2019-12-23 07:01] LABS: ALBUMIN 1.3 g/dL (3.4-5.0); ANION GAP 7 mmol/L (5-15); CHLORIDE 112 mmol/L (98-107)
[2019-12-23 07:05] VITALS: BP 98/66
[2019-12-23 07:14] LABS: % IRON SATURATION 11 % (20-55); ALANINE AMINOTRANSFERASE 18 U/L (12-78); ALKALINE PHOSPHATASE 139 U/L (45-117); BILIRUBIN,TOTAL 0.5 mg/dL (0.2-1.0); CALCIUM 8.3 mg/dL (8.5-10.1); CREATININE 0.34 mg/dL (0.55-1.02); IRON LEVEL 22 mcg/dL (50-170); TOTAL IRON BINDING CAPACITY 199 mcg/dL (250-450); TRANSFERRIN 156 mg/dL (200-360)
[2019-12-23] MEDS ORDERED: VANCOMYCIN PMX 1GM/200ML 200 ML IV SCH (08:00)
[2019-12-23] MEDS: POLYTRIM OPHTH 10ML EACHEYE SCH ×2 (08:22→20:50)
[2019-12-23] MEDS ORDERED: MIRTAZAPINE 15 MG TABLET PO SCH (09:00)
[2019-12-23] MEDS ORDERED: GLUTAMINE GT SCH (09:00)
[2019-12-23] MEDS ORDERED: ARGININE GT SCH (09:00)
[2019-12-23] MEDS ORDERED: CALCIUM HMB GT SCH (09:00)
[2019-12-23] MEDS ORDERED: MULTIVITAMIN 1 TABLET GT SCH (09:00)
--- NOTE | 2019-12-23 09:21 | NUR ---
TF GOAL: Promote w/fiber at 70ml/hour via PEG Addendum: 12/23/19 at [address] Amended: Links added.
[2019-12-23] MEDS: DOCUSATE 50 MG/5 ML, 10ML UDC GT SCH ×2 (09:33→20:34)
[2019-12-23] MEDS: VALPROATE SODIUM 250 MG/5 ML UDC PO/NG SCH ×2 (09:51→20:49)
[2019-12-23 12:48] VITALS: BP 90/58
[2019-12-23] MEDS ORDERED: POTASSIUM CHLORIDE 20 MEQ TAB.ER.PRT PO SCH (17:00)
[2019-12-23 19:36] VITALS: BP 99/68
[2019-12-23] MEDS: QUETIAPINE 25MG TABLET PO SCH (20:50)
[2019-12-23] MEDS: LURASIDONE 20 MG TABLET PO SCH (20:50)
[2019-12-24 00:41] VITALS: BP 90/65
[2019-12-24] MEDS: PIPERACILLIN/TAZO/PMX 4.5GM 100 ML IV SCH ×4 (02:39→20:01)
[2019-12-24] MEDS: ENOXAPARIN 40 MG/0.4 ML SQ SCH (02:39)
[2019-12-24] MEDS: LINEZOLID PMX 600MG/300ML 300 ML IV SCH ×2 (04:14→16:36)
[2019-12-24] MEDS: POTASSIUM CHLORIDE 20 MEQ in SODIUM CHLORIDE 0.45% 1,000 ML IV SCH (04:15)
[2019-12-24 05:56] LABS: BASOPHILS # (AUTO) 0.04 x10^3/uL (0-0.1); BASOPHILS % (AUTO) 1 % (0-1); EOSINOPHILS # (AUTO) 0.17 x10^3/uL (0-0.4); EOSINOPHILS % (AUTO) 3 % (1-7); LYMPHOCYTES # (AUTO) 1.69 x10^3/uL (1-3.4); LYMPHOCYTES % (AUTO) 30 % (22-44); MD NO; MEAN CORPUSCULAR HEMOGLOBIN 24.4 pg (27.0-34.8); MEAN CORPUSCULAR HGB CONC 30.2 g/dL (32.4-35.8); MEAN CORPUSCULAR VOLUME 80.7 fL (80-100); MEAN PLATELET VOLUME 9.2 fL (7.4-10.4); MONOCYTES # (AUTO) 0.43 x10^3/uL (0.2-0.8); MONOCYTES % (AUTO) 8 % (2-9); NEUTROPHILS # (AUTO) 3.37 x10^3/uL (1.8-6.8); NEUTROPHILS % (AUTO) 59 % (42-75); PLATELET COUNT 318 x10^3/uL (130-400); RED BLOOD COUNT 2.97 x10^6/uL (3.82-5.3); RED CELL DISTRIBUTION WIDTH 19.3 % (9.6-15.2)
[2019-12-24 07:08] LABS: ALANINE AMINOTRANSFERASE 16 U/L (12-78); ALBUMIN 1.2 g/dL (3.4-5.0); ANION GAP 5 mmol/L (5-15); CALCIUM 8.1 mg/dL (8.5-10.1); CHLORIDE 110 mmol/L (98-107); CREATININE 0.28 mg/dL (0.55-1.02)
[2019-12-24 07:11] LABS: ALKALINE PHOSPHATASE 127 U/L (45-117); BILIRUBIN,TOTAL 0.3 mg/dL (0.2-1.0); TOTAL PROTEIN 6.4 g/dL (6.4-8.2)
[2019-12-24] MEDS ORDERED: POTASSIUM CHLORIDE 20 MEQ PACKET ONE ×2 (07:37→12:21)
[2019-12-24] MEDS ORDERED: POTASSIUM CHLORIDE 10% 40 MEQ/30 ML UDC PO SCH (08:00)
[2019-12-24 08:45] VITALS: BP 100/66
[2019-12-24] MEDS: DOCUSATE 50 MG/5 ML, 10ML UDC GT SCH ×2 (08:46→20:02)
[2019-12-24] MEDS: VALPROATE SODIUM 250 MG/5 ML UDC PO/NG SCH ×2 (08:46→20:01)
[2019-12-24] MEDS: POLYTRIM OPHTH 10ML EACHEYE SCH ×2 (09:04→20:05)
[2019-12-24] MEDS ORDERED: ACETAMINOPHEN 650 MG/20.3 ML UDC ONE (09:49)
[2019-12-24] MEDS: ACETAMINOPHEN 650 MG/20.3 ML UDC PO PRN (09:56)
[2019-12-24] MEDS: MULTIVIT-MINERALS/IRON ORAL SOL PO SCH (09:56)
[2019-12-24] MEDS ORDERED: POTASSIUM CHLORIDE 20 MEQ TAB.ER.PRT PEG ONE (10:00)
[2019-12-24] MEDS: DAKIN'S SOLUTION 1/4 STRENGTH 1,000 ML IRRIG SOLN EXT SCH (10:30)
[2019-12-24 13:03] VITALS: BP 102/65
[2019-12-24] MEDS: QUETIAPINE 25MG TABLET PO SCH (20:02)
[2019-12-24] MEDS: LURASIDONE 20 MG TABLET PO SCH (20:02)
[2019-12-24 20:23] VITALS: BP 102/65
[2019-12-25] MEDS: ENOXAPARIN 40 MG/0.4 ML SQ SCH (01:11)
[2019-12-25 01:17] VITALS: BP 104/57
[2019-12-25] MEDS: PIPERACILLIN/TAZO/PMX 4.5GM 100 ML IV SCH ×2 (02:07→08:08)
[2019-12-25] MEDS: LINEZOLID PMX 600MG/300ML 300 ML IV SCH (04:00)
[2019-12-25 06:20] LABS: BASOPHILS # (AUTO) 0.02 x10^3/uL (0-0.1); BASOPHILS % (AUTO) 0 % (0-1); EOSINOPHILS # (AUTO) 0.13 x10^3/uL (0-0.4); EOSINOPHILS % (AUTO) 2 % (1-7); LYMPHOCYTES # (AUTO) 1.69 x10^3/uL (1-3.4); LYMPHOCYTES % (AUTO) 28 % (22-44); MD NO; MEAN CORPUSCULAR HEMOGLOBIN 24.5 pg (27.0-34.8); MEAN CORPUSCULAR HGB CONC 30.5 g/dL (32.4-35.8); MEAN CORPUSCULAR VOLUME 80.2 fL (80-100); MEAN PLATELET VOLUME 9.3 fL (7.4-10.4); MONOCYTES # (AUTO) 0.44 x10^3/uL (0.2-0.8); MONOCYTES % (AUTO) 7 % (2-9); NEUTROPHILS # (AUTO) 3.75 x10^3/uL (1.8-6.8); NEUTROPHILS % (AUTO) 62 % (42-75); PLATELET COUNT 366 x10^3/uL (130-400); RED BLOOD COUNT 3.43 x10^6/uL (3.82-5.3); RED CELL DISTRIBUTION WIDTH 19.1 % (9.6-15.2)
[2019-12-25 06:22] LABS: CHLORIDE 110 mmol/L (98-107)
[2019-12-25 06:28] LABS: ANION GAP 6 mmol/L (5-15); CALCIUM 8.5 mg/dL (8.5-10.1); CREATININE 0.28 mg/dL (0.55-1.02)
[2019-12-25] MEDS: DOCUSATE 50 MG/5 ML, 10ML UDC GT SCH ×2 (08:07→21:26)
[2019-12-25] MEDS: POLYTRIM OPHTH 10ML EACHEYE SCH ×2 (08:08→21:26)
[2019-12-25] MEDS: MULTIVIT-MINERALS/IRON ORAL SOL PO SCH (08:08)
[2019-12-25] MEDS: VALPROATE SODIUM 250 MG/5 ML UDC PO/NG SCH ×2 (08:08→21:26)
[2019-12-25] MEDS: DAKIN'S SOLUTION 1/4 STRENGTH 1,000 ML IRRIG SOLN EXT SCH (08:09)
[2019-12-25] MEDS ORDERED: POTASSIUM CHLORIDE 20 MEQ TAB.ER.PRT PEG ONE (10:30)
[2019-12-25] MEDS ORDERED: SULFAMETH./TRIMETHOPRIM DS 800MG/160MG TABLET PO SCH (12:00)
[2019-12-25] MEDS: ACETAMINOPHEN 650 MG/20.3 ML UDC PO PRN (12:49)
[2019-12-25] MEDS: MEROPENEM 500 MG in SODIUM CHLORIDE 0.9% 100 ML IV SCH ×2 (12:50→20:09)
[2019-12-25 14:38] VITALS: BP 111/76
[2019-12-25] MEDS: CEFTRIAXONE PMX 1GM/50ML 50 ML IV SCH (15:31)
[2019-12-25 19:00] VITALS: BP 105/95
[2019-12-25] MEDS: LURASIDONE 20 MG TABLET PO SCH (21:26)
[2019-12-25] MEDS: QUETIAPINE 25MG TABLET PO SCH (21:26)
[2019-12-26 01:09] VITALS: BP 97/64
[2019-12-26] MEDS: ENOXAPARIN 40 MG/0.4 ML SQ SCH (01:28)
[2019-12-26] MEDS: MEROPENEM 500 MG in SODIUM CHLORIDE 0.9% 100 ML IV SCH ×3 (04:10→20:04)
[2019-12-26 06:21] LABS: ANION GAP 6 mmol/L (5-15); BASOPHILS # (AUTO) 0.02 x10^3/uL (0-0.1); BASOPHILS % (AUTO) 0 % (0-1); CALCIUM 8.4 mg/dL (8.5-10.1); CHLORIDE 109 mmol/L (98-107); CREATININE 0.25 mg/dL (0.55-1.02); EOSINOPHILS # (AUTO) 0.15 x10^3/uL (0-0.4); EOSINOPHILS % (AUTO) 2 % (1-7); LYMPHOCYTES # (AUTO) 1.81 x10^3/uL (1-3.4); LYMPHOCYTES % (AUTO) 23 % (22-44); MD NO; MEAN CORPUSCULAR HEMOGLOBIN 24.4 pg (27.0-34.8); MEAN CORPUSCULAR VOLUME 78.6 fL (80-100); MEAN PLATELET VOLUME 9.1 fL (7.4-10.4); MONOCYTES # (AUTO) 0.47 x10^3/uL (0.2-0.8); MONOCYTES % (AUTO) 6 % (2-9); NEUTROPHILS # (AUTO) 5.34 x10^3/uL (1.8-6.8); NEUTROPHILS % (AUTO) 69 % (42-75); PLATELET COUNT 382 x10^3/uL (130-400); RED BLOOD COUNT 3.53 x10^6/uL (3.82-5.3); RED CELL DISTRIBUTION WIDTH 19.5 % (9.6-15.2)
[2019-12-26 07:57] VITALS: BP 96/61
[2019-12-26] MEDS: DAKIN'S SOLUTION 1/4 STRENGTH 1,000 ML IRRIG SOLN EXT SCH (09:00)
[2019-12-26] MEDS: VALPROATE SODIUM 250 MG/5 ML UDC PO/NG SCH ×2 (10:21→20:32)
[2019-12-26] MEDS: MULTIVIT-MINERALS/IRON ORAL SOL PO SCH (10:22)
[2019-12-26] MEDS: DOCUSATE 50 MG/5 ML, 10ML UDC GT SCH ×2 (10:22→20:32)
[2019-12-26] MEDS: POLYTRIM OPHTH 10ML EACHEYE SCH ×2 (10:22→20:31)
[2019-12-26] MEDS: CEFTRIAXONE PMX 1GM/50ML 50 ML IV SCH (13:36)
[2019-12-26 14:49] VITALS: BP 112/72
[2019-12-26 18:49] VITALS: BP 97/59
[2019-12-26] MEDS: QUETIAPINE 25MG TABLET PO SCH (20:32)
[2019-12-26] MEDS: LURASIDONE 20 MG TABLET PO SCH (20:32)
[2019-12-27 01:01] VITALS: BP 100/68
[2019-12-27] MEDS: ENOXAPARIN 40 MG/0.4 ML SQ SCH (01:34)
[2019-12-27] MEDS: MEROPENEM 500 MG in SODIUM CHLORIDE 0.9% 100 ML IV SCH ×3 (04:09→19:52)
[2019-12-27 07:43] VITALS: BP 96/63
[2019-12-27] MEDS: DOCUSATE 50 MG/5 ML, 10ML UDC GT SCH ×2 (08:16→21:49)
[2019-12-27] MEDS: POLYTRIM OPHTH 10ML EACHEYE SCH ×3 (08:16→21:49)
[2019-12-27] MEDS: VALPROATE SODIUM 250 MG/5 ML UDC PO/NG SCH ×2 (08:17→21:48)
[2019-12-27] MEDS: DAKIN'S SOLUTION 1/4 STRENGTH 1,000 ML IRRIG SOLN EXT SCH (08:17)
[2019-12-27] MEDS: MULTIVIT-MINERALS/IRON ORAL SOL PO SCH (08:17)
[2019-12-27 08:36] LABS: BASOPHILS # (AUTO) 0.04 x10^3/uL (0-0.1); BASOPHILS % (AUTO) 1 % (0-1); EOSINOPHILS # (AUTO) 0.15 x10^3/uL (0-0.4); EOSINOPHILS % (AUTO) 2 % (1-7); LYMPHOCYTES # (AUTO) 1.98 x10^3/uL (1-3.4); LYMPHOCYTES % (AUTO) 30 % (22-44); MD NO; MEAN CORPUSCULAR HEMOGLOBIN 24.5 pg (27.0-34.8); MEAN CORPUSCULAR HGB CONC 31.1 g/dL (32.4-35.8); MEAN CORPUSCULAR VOLUME 78.9 fL (80-100); MEAN PLATELET VOLUME 8.6 fL (7.4-10.4); MONOCYTES # (AUTO) 0.41 x10^3/uL (0.2-0.8); MONOCYTES % (AUTO) 6 % (2-9); NEUTROPHILS # (AUTO) 4.13 x10^3/uL (1.8-6.8); NEUTROPHILS % (AUTO) 62 % (42-75); PLATELET COUNT 380 x10^3/uL (130-400); RED BLOOD COUNT 3.56 x10^6/uL (3.82-5.3); RED CELL DISTRIBUTION WIDTH 19.2 % (9.6-15.2)
[2019-12-27 08:47] LABS: ALBUMIN 1.4 g/dL (3.4-5.0); ANION GAP 5 mmol/L (5-15); CALCIUM 8.4 mg/dL (8.5-10.1); CHLORIDE 109 mmol/L (98-107)
[2019-12-27 08:51] LABS: ALANINE AMINOTRANSFERASE 26 U/L (12-78); ALKALINE PHOSPHATASE 142 U/L (45-117); BILIRUBIN,TOTAL < 0.1 mg/dL (0.2-1.0); CREATININE 0.29 mg/dL (0.55-1.02)
[2019-12-27 12:00] VITALS: BP 110/76
[2019-12-27] MEDS: CEFTRIAXONE PMX 1GM/50ML 50 ML IV SCH (12:53)
[2019-12-27 18:40] VITALS: BP 122/82
[2019-12-27] MEDS: QUETIAPINE 25MG TABLET PO SCH (21:48)
[2019-12-27] MEDS: LURASIDONE 20 MG TABLET PO SCH (21:48)
[2019-12-28] MEDS: ENOXAPARIN 40 MG/0.4 ML SQ SCH (01:24)
[2019-12-28] MEDS: MEROPENEM 500 MG in SODIUM CHLORIDE 0.9% 100 ML IV SCH ×2 (04:12→11:45)
[2019-12-28 04:14] VITALS: BP 122/85
[2019-12-28 06:28] LABS: BASOPHILS # (AUTO) 0.06 x10^3/uL (0-0.1); BASOPHILS % (AUTO) 1 % (0-1); EOSINOPHILS # (AUTO) 0.13 x10^3/uL (0-0.4); EOSINOPHILS % (AUTO) 2 % (1-7); LYMPHOCYTES # (AUTO) 2.84 x10^3/uL (1-3.4); LYMPHOCYTES % (AUTO) 34 % (22-44); MD NO; MEAN CORPUSCULAR HEMOGLOBIN 24.5 pg (27.0-34.8); MEAN CORPUSCULAR HGB CONC 31.1 g/dL (32.4-35.8); MEAN CORPUSCULAR VOLUME 78.7 fL (80-100); MEAN PLATELET VOLUME 9.1 fL (7.4-10.4); MONOCYTES # (AUTO) 0.57 x10^3/uL (0.2-0.8); MONOCYTES % (AUTO) 7 % (2-9); NEUTROPHILS # (AUTO) 4.75 x10^3/uL (1.8-6.8); NEUTROPHILS % (AUTO) 57 % (42-75); PLATELET COUNT 405 x10^3/uL (130-400); RED BLOOD COUNT 3.61 x10^6/uL (3.82-5.3); RED CELL DISTRIBUTION WIDTH 19.9 % (9.6-15.2)
[2019-12-28 06:29] LABS: ALANINE AMINOTRANSFERASE 35 U/L (12-78); ALBUMIN 1.5 g/dL (3.4-5.0); ANION GAP 6 mmol/L (5-15); CALCIUM 8.7 mg/dL (8.5-10.1); CHLORIDE 108 mmol/L (98-107)
[2019-12-28 06:32] LABS: ALKALINE PHOSPHATASE 152 U/L (45-117); BILIRUBIN,TOTAL 0.2 mg/dL (0.2-1.0); CREATININE 0.22 mg/dL (0.55-1.02); TOTAL PROTEIN 7.4 g/dL (6.4-8.2)
[2019-12-28 07:37] VITALS: BP 104/58
[2019-12-28] MEDS: MULTIVIT-MINERALS/IRON ORAL SOL PO SCH (10:18)
[2019-12-28] MEDS: DOCUSATE 50 MG/5 ML, 10ML UDC GT SCH (10:18)
[2019-12-28] MEDS: VALPROATE SODIUM 250 MG/5 ML UDC PO/NG SCH (10:18)
[2019-12-28] MEDS: POLYTRIM OPHTH 10ML EACHEYE SCH (10:19)
[2019-12-28] MEDS: DAKIN'S SOLUTION 1/4 STRENGTH 1,000 ML IRRIG SOLN EXT SCH (10:19)
[2019-12-28 12:55] VITALS: BP 107/74
[2019-12-28] MEDS ORDERED: Dakin's Solution 1/4 Strength EXT (13:59)
[2019-12-28] MEDS ORDERED: MULT9LIQ10 PO (13:59)
[2019-12-28] MEDS ORDERED: METH500T7 PO (13:59)
[2019-12-28] MEDS ORDERED: SULF1TAB24 PO (14:02)
[2019-12-28] MEDS: CEFTRIAXONE PMX 1GM/50ML 50 ML IV SCH ×2 (14:11→14:12)
== END 2019-12-28 17:57 | DRG 720 ==
LOC: ED 20:04 → EDIP 23:40 → 3WST 12-23 00:37 → 4NW 12-23 17:07 → 3N 12-25 14:29
PROVIDERS: ADMIT Family Medicine; ATTEND Internal Medicine
PROC: 0T9B70Z Drainage of Bladder with Drainage Device, Via Natural or Artificial Opening (ICD-10-PCS; principal; 2019-12-22)
DX: A41.9 Sepsis, unspecified organism (principal); E43 Unspecified severe protein-calorie malnutrition; L89.159 Pressure ulcer of sacral region, unspecified stage; L89.209 Pressure ulcer of unspecified hip, unspecified stage; L89.309 Pressure ulcer of unspecified buttock, unspecified stage; R53.2 Functional quadriplegia; M86.152 Other acute osteomyelitis, left femur; L89.94 Pressure ulcer of unspecified site, stage 4; E86.0 Dehydration; E87.0 Hyperosmolality and hypernatremia; D50.9 Iron deficiency anemia, unspecified; E87.6 Hypokalemia; F31.9 Bipolar disorder, unspecified; F79 Unspecified intellectual disabilities; G40.909 Epilepsy, unspecified, not intractable, without status epilepticus; H10.9 Unspecified conjunctivitis; L03.312 Cellulitis of back [any part except buttock and flank]; M46.28 Osteomyelitis of vertebra, sacral and sacrococcygeal region; M85.851 Other specified disorders of bone density and structure, right thigh; N39.0 Urinary tract infection, site not specified; R13.12 Dysphagia, oropharyngeal phase; Z93.1 Gastrostomy status; Z88.6 Allergy status to analgesic agent; Z88.5 Allergy status to narcotic agent; Z88.2 Allergy status to sulfonamides; Z68.21 Body mass index [BMI] 21.0-21.9, adult; M86.651 Other chronic osteomyelitis, right thigh; M86.652 Other chronic osteomyelitis, left thigh; Z20.828 Contact with and (suspected) exposure to other viral communicable diseases
CPT/HCPCS: 36415; 71045; 72170; 72192; 80048; 80053; 81001; 82040; 82728; 83540; 83550; 83605; 83735; 84100; 84145; 84466; 85025; 85651; 86140; 87040; 87070; 87077; 87086; 87147; 87186; 87205; 96361; 96365; 96366; 96367; G0378; J0696; J1650; J2020; J2185; J2543; J3370; J3480; J7030; U0001